=== PATIENT | male | born 1960 | race Caucasian/White ===

== ENCOUNTER 2019-08-08 07:21 | Outpatient (CLI) | payer OTHER ==
--- NOTE | 2019-08-08 08:50 | CT ---
CT ABDOMEN AND PELVIS WITH IV CONTRAST: DATE: 08/08/2019. PROVIDED CLINICAL HISTORY: Palpable liver, anemia, flu-like symptoms. FINDINGS: Comparison is made with the study dated 02/05/2010. The visualized lung bases are free of significant opacity. There are 2 large hypodense masses involving the liver. The largest measures about 17.5 cm in transv erse dimension and spans the right and left hepatic lobes. The second hypodense mass measures about 10 cm in craniocaudal dimension and involves the posterior segment of the right hepatic lobe. These masses demonstrate fluid density centrally and demonstrate a rind of intermediate density with respec t to the normal adjacent liver and are compatible with hepatic abscesses. The liver appears enlarged , measuring about 24 cm in craniocaudal dimension. The spleen, pancreas, kidneys, and adrenal glands demonstrate an unremarkable CT appearance. There is no bowel dilatation or inflammatory fat stranding. There is trace free fluid present within the pelvic cul-de-sac. Colonic diverticulosis is demonstrated. There are prominent by number not pa thologically enlarged retrocrural lymph nodes, nonspecific. There is a single mildly enlarged lymph node within the region of the jose hepatis, that could be reactive in nature. Vascular calcifications are seen. There is a small amount of fluid within the right inguinal canal pr esumably on the basis of a patent process of vaginalis. The osseous structures demonstrate no concerning lytic or blastic lesions. IMPRESSION: 1. Large cystic masses involving the liver, most compatible with liver abscesses. 2. Trace free pelvic fluid. 3. Hepatomegaly. 4. These findings were communicated to Dr. Squires via telephone at _[id number]_ 08/08/2019. CODE CR POS: OFF
[2019-08-08] MEDS ORDERED: Iopamidol-370 76% 500 ML 1 ML ONE (15:17)
== END 2019-08-08 07:22 | disposition home or self-care (01) ==
LOC: BICCT 07:21
PROVIDERS: ATTEND Internal Medicine Hematology & Oncology
DX: R16.0 Hepatomegaly, not elsewhere classified (principal); D72.828 Other elevated white blood cell count; D63.8 Anemia in other chronic diseases classified elsewhere; K76.89 Other specified diseases of liver
CPT/HCPCS: 74177; Q9967

== ENCOUNTER 2019-08-08 09:25 | Inpatient (IN) | payer OTHER ==
[2019-08-08] MEDS ORDERED: Lorazepam 2 MG/ML VIAL ONE (09:48)
[2019-08-08 10:30] LABS: Hemoglobin 7.4 g/dL (14.0-18.0); Mean Corpuscular HGB CONC 32.2 g/dL (32.0-36.0); Mean Corpuscular Hemoglobin 26.9 pg (27.0-31.0); Mean Corpuscular Volume 83.4 fL (78.0-98.0); Mean Platelet Volume 5.5 fL (7.4-10.4); Platelet Count 610 thou/uL (130-400); RBC Distribution Width 14.5 % (11.5-14.5); Red Blood Cell (RBC) Count 2.74 mill/uL (4.70-6.10); White Blood Cell (WBC) Count 27.1 thou/uL (4.8-10.8)
[2019-08-08 10:53] LABS: ALT (SGPT) 79 U/L (8-55); AST (SGOT) 92 U/L (5-34); Alkaline Phosphatase 275 U/L (40-110); Anion Gap 13 mmol/L (10-20); BUN (Urea Nitrogen) 19 mg/dL (8.4-25.7); Bilirubin, Total 0.7 mg/dL (0.2-1.2); Calc. Creatinine Clearance 0 mL/min (70-130); Calcium 8.6 mg/dL (7.8-10.44); Carbon Dioxide 27 mmol/L (22-29); Chloride 86 mmol/L (98-107); Estimated GFR-MDRD 90; Globulin 3.4 g/dL (2.4-3.5); Glucose 118 mg/dL (70-105); Lipase 10 U/L (8-78); Potassium 3.7 mmol/L (3.5-5.1); Protein, Total 6.4 g/dL (6.0-8.3); Sodium 122 mmol/L (136-145)
[2019-08-08 11:02] LABS: Band 9 % (5-11); Hypochromia SLIGHT = 6-15 cells (100X) (0-5/hpf); Lymphocytes 10 % (21-51); MDiff Complete? YES; Monocytes 2 % (0-10); Neutrophil 78 % (42-75); Platelet Morphology Comment Appears Increased; Polychromasia SLIGHT = 2-3 cells (100X) (0-2/hpf); Reactive Lymphocytes 1 % (0-10)
[2019-08-08] MEDS ORDERED: Acetaminophen 500 MG TAB ONE (11:02)
[2019-08-08] MEDS ORDERED: Meropenem 2 GM, Admixture Fee 1 EACH in Sodium Chloride 0.9% 100 ML IVPB SCH (11:15)
--- NOTE | 2019-08-08 11:46 | CT ---
NONCONTRAST HEAD CT: HISTORY: Headache. Liver abscess. COMPARISON: 02/05/2010. FINDINGS: No parenchymal hemorrhage. No extraaxial hematoma. No midline shift. Basilar cisterns are patent. Brain volume is age appropriate. Cortical benson-white matter differentiation is preserved. No hydrocephalus. Adequate aeration of the sinuses and mastoid air cells. Calvarium is intact. IMPRESSION: No acute intracranial process. POS: CET
[2019-08-08 12:10] LABS: INR-International Normal Ratio 1.3
[2019-08-08] MEDS ORDERED: Heparin 1,000 UNITS/ML VIAL ONE (12:11)
[2019-08-08] MEDS ORDERED: Ondansetron PF 4 MG/2 ML Vial IVP PRN (12:31)
[2019-08-08] MEDS ORDERED: Acetaminophen 325 MG TAB PO PRN (12:31)
[2019-08-08] MEDS ORDERED: Guaifenesin DM 100-10/5 ML UDCUP PO PRN (12:31)
[2019-08-08] MEDS ORDERED: Bisacodyl 10 MG SUPP PR PRN (12:31)
--- NOTE | 2019-08-08 13:46 | CT ---
CT chest noncontrast HISTORY: Liver abscess. Evaluate for pneumonia. FINDINGS: Lungs are well-inflated. Minimal peripheral scarring. No pleural fluid or lobar consolidati on. Lack of contrast limits evaluation of the soft tissues. There is calcification in the arterial struct ures. Old bilateral rib fractures. Nonenlarged, nonspecific lymph nodes are scattered about the mediastinum. Hypodense masses throughout the liver are partially visualized and better detailed on recent CT abdom en exam. IMPRESSION: No acute inflammatory abnormalities of the chest are demonstrated. Atherosclerosis.
[2019-08-08] MEDS ORDERED: Midazolam HCl 2 mg/2 ml Vial ONE (13:56)
[2019-08-08] MEDS ORDERED: Sodium Bicarbonate 2.5 MEQ/5 ML VIAL ONE (13:56)
[2019-08-08] MEDS ORDERED: Fentanyl 100 MCG/2 ML VIAL ONE (13:57)
[2019-08-08 14:00] LABS: Iron 12 ug/dL (65-175); Iron Binding Capacity, Total 149 mcg/dL (261-462)
[2019-08-08 15:31] LABS: Ferritin 3005.01 ng/mL (22-322)
--- NOTE | 2019-08-08 15:59 | HP ---
REASON FOR ADMISSION: Large liver abscess x2, sepsis. HISTORY OF PRESENTING ILLNESS: The patient gives history of having chills, fever, headache, weakness from last 3 months off and on. He in fact had gone to [facility] and the patient had gone to see GRACIELA Rico, at the [facility] and was given a full course of ciprofloxacin. The second time he went with similar complaints , he was given a steroid tapering dose. The patient in fact thought he had flu-like symptoms. The second time when he went, he had blood work done and was referred for to [facility] here. He had come to the Cancer Clinic last Sunday here and had given blood work. He has not heard anything from them yet. As his symptoms continued and the patient got so weak to the point that he could not bear it anymore, came to emergency room here. He has not had any travel outside the country. The patient has been to residential for a duration of 4 months 10 years back. He has not been to shelters. His fever rises up in the evening and lasts up to midnight. He has lost nearly 35 pounds in the last 3 months now. He has some vague discomfort in the right upper quadrant and right lower chest area. No nausea or vomiting. No history of diarrhea including bloody stools or mucoid stools. PAST MEDICAL AND SURGICAL HISTORY: Hypertension, prior history of small bowel obstruction, which was medically treated, left wrist surgery, chronic back pain. CURRENT MEDICATIONS: The patient takes; 1. Meloxicam 15 mg p.r.n. 2. Flexeril 10 mg three times daily p.r.n. 3. Multivitamin one tablet once daily. 4. Lasix 20 mg daily. 5. Ultram 50 mg twice daily p.r.n. 6. Lisinopril with hydrochlorothiazide 20/25 mg p.o. daily. 7. Potassium chloride daily. ALLERGIES: NO KNOWN DRUG ALLERGIES. PERSONAL HISTORY: Smokes cigars on a daily basis. States he smokes weed. Drinks anywhere from 8 to 10 beers daily. Does not abuse other drugs. Lives with his with whom he is for 8 years now. FAMILY HISTORY: Both parents are living. They are in their late 70s. Both have had history of skin cancers. REVIEW OF SYSTEMS: CONSTITUTIONAL: Negative for weight loss or gain, ability to conduct usual activities. SKIN: Negative for rash, itching. EYES: Negative for double vision, pain. ENT/MOUTH: Negative for nose bleeding, neck stiffness, pain, tenderness. CARDIOVASCULAR: Negative for palpitations, dyspnea on exertion, orthopnea. RESPIRATORY: Negative for shortness of breath, wheezing, cough, hemoptysis, fever or night sweats. GASTROINTESTINAL: Negative for poor appetite, abdominal pain, heartburn, nausea , vomiting, constipation, or diarrhea. GENITOURINARY: Negative for urgency, frequency, dysuria, nocturia. MUSCULOSKELETAL: Negative for pain, swelling. NEUROLOGIC/PSYCHIATRIC: Negative for anxiety, depression. ALLERGY/IMMUNOLOGIC: Negative for skin rash, bleeding tendency. CODE STATUS: Full. Power of insurance attorney is his . PHYSICAL EXAMINATION: GENERAL: The patient is a 59-year-old male who is currently not in any acute distress. VITAL SIGNS: Blood pressure 118/62, pulse 115 per minute, respiratory rate 20 per minute, temperature 100.8 degrees Fahrenheit, saturating 99% on room air. NECK: Supple. No elevated JVD. HEENT: Eyes; extraocular muscles intact. Pupils reacting to light. Oral cavity, mucous membranes are dry. No exudates or congestion. CARDIOVASCULAR: S1 and S2 heard. Regular rhythm. RESPIRATORY: Air entry 1+ bilateral. Scattered rhonchi plus. No rales or wheezes. ABDOMEN: Soft. Mild tenderness in the right upper quadrant. Hepatomegaly is felt and the liver margins are tender. No splenomegaly. No rigidity or guarding. EXTREMITIES: No peripheral edema or calf tenderness. VASCULAR: Peripheral pulses 1+ bilateral. No ischemic ulcerations or gangrene. CENTRAL NERVOUS SYSTEM: No gross focal deficits noted. The patient is alert, awake, and oriented well. PSYCHIATRIC: The patient's mood is euthymic. No hallucinations or delusions. LABORATORY DATA: CT chest without contrast done showed no acute inflammatory abnormality. CT brain without contrast done showed no acute intracranial abnormality. CT of the abdomen and pelvis showed large cystic masses involving liver, most compatible with liver abscesses. Trace free pelvic fluid is seen. Hepatomegaly is seen. White count of 27, H and H of 7.4 and 22, MCV is 83, platelet count 610 with 78% neutrophils and 9% bands. Retic count is 2.0. PT, INR, PTT are 16, 1.3, and 36. Sodium 122, serum bicarb 27, BUN 19, creatinine 0.8, glucose 118. Lactic acid 1.1. Serum iron 12, TIBC 149, percent saturation 8. AST 92, ALT 79 , alkaline phosphatase 275, albumin 3.0. Ferritin is 1863. CLINICAL IMPRESSION AND PLAN: The patient will be admitted to [facility] for suspected large liver abscesses x2. Interventional Radiology has been consulted for drainage of the same. We will await cultures from the same. We will also obtain QuantiFERON tests, blood cultures, urine cultures, and Entamoeba histolytica antigen and antibody levels. He will be on meropenem and vancomycin. We will consult Dr. Mahoney for Infectious Disease. The patient will be on normal saline at 100 mL per hour. He will be on banana bag in view of heavy history of alcohol abuse. We will continue to closely monitor him in [facility]. He can be safely downgraded early in the morning once he is stable. Job ID: [id number] MTDD
--- NOTE | 2019-08-08 16:09 | CT ---
CT Liver Abscess Drainage History: Liver abscess as Comparison: CT examination same day Findings: Patient was brought to the CT suite. Questions were answered. Informed consent was obtained. Timeout performed. The patient's abdomen was prepped and draped in normal sterile fashion. After adequate local anesthes ia using CT guidance, an 8 [place] drainage catheter was placed into the left hepatic lobe anterior abscess. Loculations were broken up with Amplatz wire. An 8 [place] catheter was placed within the abs cess. Next there is attention to the right posterior hepatic abscess. Again the right posterior flank was p repped and draped in normal sterile fashion. After adequate local anesthesia under CT guidance an 8 [place] catheter was placed into the abscess after breaking up the loculations with an Amplatz wire. Impression: Technically successful CT-guided liver abscess drainage x2.
[2019-08-08 16:48] VITALS: BMI 28.3
[2019-08-08] MEDS: Sodium Chloride 0.9% 1,000 ML IV SCH ×2 (16:57→21:06)
[2019-08-08] MEDS: Multivitamins, Adult 10 ML, Folic Acid 1 MG, Thiamine HCl 100 MG in Dextrose 5 %-0.45 %... IV SCH (16:58)
[2019-08-08] MEDS: Morphine 2 MG/ML SYRINGE SLOW IVP PRN (17:08)
[2019-08-08] MEDS: MEROPENEM 1 GM/50 ML 1 GM in Premix Bag 1 BAG IVPB SCH (20:46)
[2019-08-08] MEDS ORDERED: Vancomycin HCl 1 GM in Premix Bag 1 BAG IVPB SCH (21:00)
[2019-08-08] MEDS: Vancomycin HCl 1.75 GM in Sodium Chloride 0.9% 500 ML IVPB SCH (21:02)
[2019-08-08] MEDS: Famotidine 20 MG TAB PO SCH (21:02)
[2019-08-08] MEDS: Senokot S 8.6-50 MG TAB PO PRN (21:06)
[2019-08-09] MEDS: Morphine 2 MG/ML SYRINGE SLOW IVP PRN ×4 (03:18→21:23)
[2019-08-09 03:56] LABS: ALT (SGPT) 68 U/L (8-55); AST (SGOT) 64 U/L (5-34); Albumin 2.6 g/dL (3.5-5.0); Alkaline Phosphatase 250 U/L (40-110); Anion Gap 14 mmol/L (10-20); BUN (Urea Nitrogen) 16 mg/dL (8.4-25.7); Bilirubin, Total 0.9 mg/dL (0.2-1.2); Calc. Creatinine Clearance 140 mL/min (70-130); Calcium 8.1 mg/dL (7.8-10.44); Carbon Dioxide 24 mmol/L (22-29); Chloride 92 mmol/L (98-107); Estimated GFR-MDRD Greater than 90; Globulin 3.2 g/dL (2.4-3.5); Glucose 101 mg/dL (70-105); Potassium 3.9 mmol/L (3.5-5.1); Protein, Total 5.8 g/dL (6.0-8.3); Sodium 126 mmol/L (136-145)
[2019-08-09 04:40] LABS: Band 5 % (5-11); Elliptocytes SLIGHT = 2-5 cells (100X) (0-1/hpf); Hemoglobin 8.7 g/dL (14.0-18.0); Hypochromia SLIGHT = 6-15 cells (100X) (0-5/hpf); Lymphocytes 15 % (21-51); MDiff Complete? YES; Mean Corpuscular HGB CONC 31.9 g/dL (32.0-36.0); Mean Corpuscular Hemoglobin 27.3 pg (27.0-31.0); Mean Corpuscular Volume 85.4 fL (78.0-98.0); Mean Platelet Volume 5.5 fL (7.4-10.4); Metamyelocyte 1 % (0-0); Monocytes 3 % (0-10); Neutrophil 76 % (42-75); Platelet Count 586 thou/uL (130-400); Platelet Morphology Comment Appears Increased; RBC Distribution Width 14.7 % (11.5-14.5); Red Blood Cell (RBC) Count 3.18 mill/uL (4.70-6.10); White Blood Cell (WBC) Count 21.5 thou/uL (4.8-10.8)
[2019-08-09] MEDS: MEROPENEM 1 GM/50 ML 1 GM in Premix Bag 1 BAG IVPB SCH ×3 (04:40→20:05)
[2019-08-09] MEDS: Vancomycin HCl 1.75 GM in Sodium Chloride 0.9% 500 ML IVPB SCH ×2 (09:02→21:48)
[2019-08-09] MEDS: Sodium Chloride 0.9% 1,000 ML IV SCH ×2 (09:02→19:23)
[2019-08-09] MEDS: Famotidine 20 MG TAB PO SCH ×2 (09:03→19:22)
[2019-08-09] MEDS: HYDROcodone/Acetaminophen 5/325 mg Tablet PO PRN ×3 (09:03→19:21)
[2019-08-09] MEDS: Enoxaparin Sodium 40 MG/0.4 ML SYRINGE SC SCH (09:13)
--- NOTE | 2019-08-09 10:43 | PDOC.HOSPP ---
- Subjective Encounter Date: 08/09/19 Encounter Time: 10:41 Subjective: Mr. Hammer was seen today in follow-up of liver abscess. He notes some abdominal pain, but says it is tolerable with pain medication. - Objective Vital Signs & Weight: Vital Signs (12 hours) Temp Pulse Ox 08/09/19 07:52 97 08/09/19 07:15 98.2 F 08/09/19 03:47 98.9 F 08/08/19 23:42 97.2 F L Weight Weight 197 lb 8 oz I&O: 08/08/19 08/09/19 08/10/19 06:59 06:59 06:59 Intake Total 1450 Output Total 1645 Balance -195 Result Diagrams: 08/09/19 03:21 08/09/19 03:21 Hospitalist ROS - Medication Medications: Active Medications Generic Name Dose Route Start Last Admin Trade Name Freq PRN Reason Stop Dose Admin Acetaminophen 650 mg 08/08/19 12:31 08/08/19 19:35 Tylenol PO 650 mg Q4H PRN Administration Headache/Fever/Mild Pain (1-3) Hydrocodone Bitart/Acetaminophen 1 tab 08/08/19 12:31 08/09/19 09:03 [place] 5/325 PO 1 tab Q4H PRN Administration Moderate Pain (4-6) Enoxaparin Sodium 40 mg 08/09/19 09:00 08/09/19 09:13 Lovenox SC 40 mg 0900 RHONDA Administration Famotidine 20 mg 08/08/19 21:00 08/09/19 09:03 Pepcid PO 20 mg BID RHONDA Administration Multivitamins 10 ml/ Folic 1,011.2 mls @ 60 mls/hr 08/08/19 13:00 08/08/19 16 :58 Acid 1 mg/ Thiamine HCl 100 mg IV 08/10/19 05:52 Not Given / Dextrose/Sodium Chloride Q24HR RHONDA Meropenem 1 gm/ Device 50 mls @ 100 mls/hr 08/08/19 20:00 08/09/19 04:40 IVPB 50 mls 0400,1200,2000 RHONDA Administration Sodium Chloride 1,000 mls @ 100 mls/hr 08/08/19 12:31 08/09/19 09:02 Normal Saline 0.9% IV 1,000 mls .Q10H RHONDA Administration Vancomycin HCl 1.75 gm/ Sodium 500 mls @ 250 mls/hr 08/08/19 21:00 08/09/19 09:02 Chloride IVPB 500 mls Q12HR RHONDA Administration Morphine Sulfate 2 mg 08/08/19 12:31 08/09/19 09:02 Morphine SLOW IVP 2 mg Q4H PRN Administration Pain Senna/Docusate Sodium 2 tab 08/08/19 12:31 08/08/19 21:06 Senokot S PO 2 tab BIDPRN PRN Administration Constipation - Exam Eye: PERRL Heart: RRR, no rubs, normal peripheral pulses, II/IV Respiratory: CTAB, no wheezes, no rales, no ronchi, normal chest expansion, no tachypnea, normal percussion Gastrointestinal: soft, non-distended, normal bowel sounds, no palpable masses, no hepatomegaly, no splenomegaly, tender to palpation (+ mild abdomnial tenderness no rebound or guarding) Extremities: no cyanosis, no clubbing, no edema Skin: normal turgor, no rashes Hosp A/P (1) Liver abscess Code(s): K75.0 - ABSCESS OF LIVER Status: Acute (2) Hypertension Code(s): I10 - ESSENTIAL (PRIMARY) HYPERTENSION Status: Acute (3) Anemia, chronic disease Code(s): D63.8 - ANEMIA IN OTHER CHRONIC DISEASES CLASSIFIED ELSEWHERE Status : Acute - Plan * Liver Abscess- ? etiology- he is s/p percutaneous drainage * Continue Meropenem and Vancomycin IV * Await culture results * Await ID input * HTN-blood pressure is stable * Symptom management
[2019-08-09] MEDS ORDERED: Lorazepam 2 MG/ML VIAL SLOW IVP PRN (10:47)
[2019-08-09] MEDS ORDERED: Lorazepam 1 MG TAB PO PRN (10:47)
[2019-08-09] MEDS: Multivitamins, Adult 10 ML, Folic Acid 1 MG, Thiamine HCl 100 MG in Dextrose 5 %-0.45 %... IV SCH (12:24)
--- NOTE | 2019-08-09 12:54 | CON ---
DATE OF CONSULTATION: HISTORY OF PRESENT ILLNESS: Kameron Hammer is a 59-year-old gentleman whose family states, for 3 months, he has had febrile illness, cough, and cold about several weeks ago. He started developing abdominal pain where workup revealed he had multiple liver abscesses and he underwent drainage yesterday. His family states he has a heavy history of alcohol intake. He is an alcoholic, drinks up to 12 beers a day. 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 Does not miss the work. PAST MEDICAL HISTORY: Pertinent for hypertension. PAST SURGICAL HISTORY: Previous surgeries: Left wrist surgery. SOCIAL HISTORY: Tobacco, minimal; cigars, marijuana. Alcohol as noted. HOME MEDICATIONS: Unknown. He sees a doctor [[id number]]. REVIEW OF SYSTEMS: Otherwise, 10-point negative. PHYSICAL EXAMINATION: GENERAL: Foul smelling odor in the room. VITAL SIGNS: Temperature 97, sats 97% on room air, blood pressure 120/80, respiratory rate 18. CHEST: No wheezing or crackles. CARDIAC: Normal S1, S2. No gallops. ABDOMEN: No masses. LABORATORY DATA: White count 21,000; and platelet count is elevated. His liver function shows an AST of 64. IMPRESSION: 1. Anaerobic liver abscess. 2. Alcohol abuse. PLAN: 1. Anaerobic coverage for his liver abscesses and meropenem. This should be more than adequate. Also on vancomycin. Await cultures. 2. Pulmonary/Critical Care will follow while in the MICU. Consultation note, 70 minutes, 50% direct patient care. Job ID: [id number]
--- NOTE | 2019-08-09 16:09 | CON ---
DATE OF CONSULTATION: 08/09/2019 REASON FOR CONSULTATION: Liver abscess. HISTORY OF PRESENT ILLNESS: A 59-year-old gentleman with history of alcoholism with 3 months' history of progressively worsening right upper quadrant pain. The patient was seen 2 or 3 times in the outpatient clinic at [facility] in [place], and was given antimicrobial therapy for a few days with immediate improvement, but then recrudescence of the symptoms, eventually had to be admitted, and has had percutaneous CT-guided drainage. Two different drains have been placed with purulent anaerobic-smelling exudate. He has 2 pigtail catheters inserted and he otherwise denies headaches. No visual symptoms, sore throat, odynophagia, or dysphagia. No dental pain. Back pain at the site of the 2nd percutaneous drain. No dyspnea or cough. He has some delay in voiding, which is new. No joint symptoms or skin disorder. No neurological symptoms. PAST MEDICAL HISTORY: 1. Alcoholism. 2. Hypertension. PAST SURGICAL HISTORY: Left wrist repair. 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 Lives in [place] with . Drinks more than 10 drinks per day. Current smoker, mostly cigars. ALLERGIES: NONE. MEDICATIONS: Had been on: 1. Meloxicam. 2. Lisinopril. 3. Cyclobenzaprine. 4. Furosemide. 5. Tramadol. 6. Potassium. 7. Multivitamins. Now, he is also on meropenem and vancomycin. FAMILY HISTORY: Noncontributory. PHYSICAL EXAMINATION: VITAL SIGNS: T-max 101.4, blood pressure 130/70, pulse 82, respirations 18. SKIN : Two percutaneous drains, one in the right upper quadrant and the other in the right subcostal region right side posteriorly. No Eduardo catheter. Voiding spontaneously. No lymphadenopathy. HEENT: Alopecia. Ocular movements normal. Pupils are equal. Conjunctivae normal. Oral cavity with still quite a few teeth in place with moderate decay. NECK: Supple. No jugular vein distention or carotid bruits. LUNGS: Symmetric breath sounds. HEART: S1 and S2. Regular rate. No S3 or S4. ABDOMEN: Soft, not distended. No ascites. No bladder distention. Tender right upper quadrant. Liver edge percussed about 2 cm below the right costal margin. No evidence of splenomegaly. EXTREMITIES: No joint inflammatory activity. Pulses 1+ in dorsalis pedis. NEUROLOGIC: Nonfocal including cognitive function. Speech is normal. Recall is normal. Follows commands, pleasant. DIAGNOSTIC STUDIES: LABORATORY RESULTS: Initial lab results: Sodium 122, creatinine 0.87, glucose 118. Iron 12 and TIBC 149. Bilirubin 0.7, AST 92, ALT 79, alkaline phosphatase 275, and albumin 3.0. Initial white cell count 27,000 and now 21,000, hemoglobin 7.4 and 8.7, platelets are 586 now, differentials with a predominance of mature neutrophils. Two sets of blood cultures pending. The aspirates from the liver with pending cultures. Gram stain with no organisms seen. IMAGING STUDIES: An abdomen and pelvis CT from yesterday with a large cystic mass in the liver, trace pelvic fluid, hepatomegaly. ASSESSMENT: 1. Alcoholism. 2. Likely pyogenic liver abscess. DISCUSSION: The clinical findings and the odor or typical anaerobic liver abscess, probably from bowel origin, could be from oral cavity as well; for example, Fusobacterium or Prevotella liver abscess from extension from the parapharyngeal space to the venous plexus. Biliary tract process not obvious. Continue meropenem and monitor culture results, so will need a PICC line insertion and IV antimicrobial therapy for protracted period of time probably around 6 weeks. May be able to treat with oral medication depending on the nature of the organism, but most likely will need a PICC line. The disposition will depend on case management and his insurance. Job ID: [id number] MTDD
[2019-08-10] MEDS: Morphine 2 MG/ML SYRINGE SLOW IVP PRN ×3 (01:28→19:08)
[2019-08-10] MEDS: Sodium Chloride 0.9% 1,000 ML IV SCH ×2 (04:25→11:57)
[2019-08-10] MEDS: MEROPENEM 1 GM/50 ML 1 GM in Premix Bag 1 BAG IVPB SCH ×3 (04:25→19:08)
[2019-08-10] MEDS: Senokot S 8.6-50 MG TAB PO PRN ×2 (04:45→19:14)
[2019-08-10 05:20] LABS: #Basophils 0.2 thou/uL (0.0-0.2); #Eosinphils 0.1 thou/uL (0.0-0.7); #Lymphocytes 3.7 thou/uL (1.20-3.40); #Monocytes 0.8 thou/uL (0.11-0.59); #Neutrophils 13.2 thou/uL (1.40-6.50); %Basophils 0.9 % (0.0-1.0); %Eosinophils 0.3 % (0.0-10.0); %Lymphocytes 20.8 % (21.0-51.0); %Monocytes 4.4 % (0.0-10.0); %Neutrophils 73.6 % (42.0-75.0); Hemoglobin 8.4 g/dL (14.0-18.0); Mean Corpuscular HGB CONC 31.7 g/dL (32.0-36.0); Mean Corpuscular Hemoglobin 27.2 pg (27.0-31.0); Mean Corpuscular Volume 85.6 fL (78.0-98.0); Mean Platelet Volume 5.6 fL (7.4-10.4); Platelet Count 604 thou/uL (130-400); RBC Distribution Width 14.8 % (11.5-14.5); Red Blood Cell (RBC) Count 3.11 mill/uL (4.70-6.10); White Blood Cell (WBC) Count 17.9 thou/uL (4.8-10.8)
[2019-08-10 05:45] LABS: Anion Gap 12 mmol/L (10-20); BUN (Urea Nitrogen) 12 mg/dL (8.4-25.7); Calc. Creatinine Clearance 172 mL/min (70-130); Calcium 7.8 mg/dL (7.8-10.44); Carbon Dioxide 23 mmol/L (22-29); Chloride 95 mmol/L (98-107); Estimated GFR-MDRD Greater than 90; Glucose 111 mg/dL (70-105); Potassium 3.6 mmol/L (3.5-5.1); Sodium 126 mmol/L (136-145)
[2019-08-10] MEDS: Enoxaparin Sodium 40 MG/0.4 ML SYRINGE SC SCH (08:39)
[2019-08-10] MEDS: HYDROcodone/Acetaminophen 5/325 mg Tablet PO PRN (08:39)
[2019-08-10 08:40] LABS: Vancomycin, Trough 17.3 ug/mL
[2019-08-10] MEDS: Thiamine 100 MG TAB PO SCH (08:40)
[2019-08-10] MEDS: Famotidine 20 MG TAB PO SCH ×2 (08:40→19:08)
[2019-08-10] MEDS: Folic Acid 1 MG TAB PO SCH (08:40)
[2019-08-10] MEDS: Vancomycin HCl 1.75 GM in Sodium Chloride 0.9% 500 ML IVPB SCH ×2 (09:58→19:49)
--- NOTE | 2019-08-10 10:11 | PRG ---
DATE OF SERVICE: 08/10/2019 SUBJECTIVE: Kameron Pelayo this morning is doing better. Less pain, less shortness of breath. OBJECTIVE: VITAL SIGNS: Temperature 98, pulse 91, respirations 18, saturations , blood pressure 135/78. CHEST: No wheezing or crackles. CARDIAC: Normal S1 and S2. No gallops. ABDOMEN: No mass. LABORATORY DATA: Sodium 126. White count cultures so far negative. IMPRESSION AND PLAN: Liver abscess, multiple; alcohol abuse. Continue antibiotics as per Infectious Disease. Pulmonary will follow at a distance. Call if needed. Job ID: [id number]
--- NOTE | 2019-08-10 14:09 | PDOC.HOSPP ---
- Subjective Encounter Date: 08/10/19 Encounter Time: 14:08 Subjective: Mr. Hammer was seen today in follow-up of liver abscess. He continues to have significant pain in the RUQ. No new complaints. His overall appearance is better. - Objective Vital Signs & Weight: Vital Signs (12 hours) Temp Pulse Resp BP Pulse Ox 08/10/19 08:00 96 08/10/19 07:53 98.9 F 91 18 135/78 97 08/10/19 04:43 97.4 F L 96 20 151/80 H 96 Weight Admit Weight 197 lb 8 oz Weight 197 lb 8 oz I&O: 08/09/19 08/10/19 08/11/19 06:59 06:59 06:59 Intake Total 1450 Output Total 1645 170 105 Balance -195 -170 -105 Result Diagrams: 08/10/19 04:46 08/10/19 04:46 Hospitalist ROS - Medication Medications: Active Medications Generic Name Dose Route Start Last Admin Trade Name Freq PRN Reason Stop Dose Admin Acetaminophen 650 mg 08/08/19 12:31 08/08/19 19:35 Tylenol PO 650 mg Q4H PRN Administration Headache/Fever/Mild Pain (1-3) Hydrocodone Bitart/Acetaminophen 1 tab 08/08/19 12:31 08/10/19 08:39 [place] 5/325 PO 1 tab Q4H PRN Administration Moderate Pain (4-6) Enoxaparin Sodium 40 mg 08/09/19 09:00 08/10/19 08:39 Lovenox SC 40 mg 0900 RHONDA Administration Famotidine 20 mg 08/08/19 21:00 08/10/19 08:40 Pepcid PO 20 mg BID RHONDA Administration Folic Acid 1 mg 08/10/19 09:00 08/10/19 08:40 Folvite PO 1 mg DAILY RHONDA Administration Meropenem 1 gm/ Device 50 mls @ 100 mls/hr 08/08/19 20:00 08/10/19 11:56 IVPB 50 mls 0400,1200,2000 RHONDA Administration Vancomycin HCl 1.75 gm/ Sodium 500 mls @ 250 mls/hr 08/08/19 21:00 08/10/19 09:58 Chloride IVPB 500 mls Q12HR RHONDA Administration Morphine Sulfate 2 mg 08/08/19 12:31 08/10/19 12:36 Morphine SLOW IVP 2 mg Q4H PRN Administration Pain Senna/Docusate Sodium 2 tab 08/08/19 12:31 08/10/19 04:45 Senokot S PO 2 tab BIDPRN PRN Administration Constipation Thiamine HCl 100 mg 08/10/19 09:00 08/10/19 08:40 Thiamine PO 100 mg DAILY RHONDA Administration - Exam Eye: PERRL Heart: RRR, no murmur, no gallops, no rubs, normal peripheral pulses Respiratory: CTAB, no wheezes, no rales, no ronchi, normal chest expansion Gastrointestinal: soft, normal bowel sounds, tender to palpation, distended Extremities: no cyanosis, no clubbing, no edema Hosp A/P (1) Liver abscess Code(s): K75.0 - ABSCESS OF LIVER Status: Acute (2) Hypertension Code(s): I10 - ESSENTIAL (PRIMARY) HYPERTENSION Status: Acute (3) Anemia, chronic disease Code(s): D63.8 - ANEMIA IN OTHER CHRONIC DISEASES CLASSIFIED ELSEWHERE Status : Acute - Plan * Liver Abscess- ? etiology- he is s/p percutaneous drainage * Continue Meropenem and Vancomycin IV * Will add Incentive Spirometry * Hyponatemia-consistent with SIADH- will fluid restrict, and discontinue the IV fluids * HTN- blood pressure is stable
[2019-08-11] MEDS: Morphine 2 MG/ML SYRINGE SLOW IVP PRN (04:05)
[2019-08-11] MEDS: MEROPENEM 1 GM/50 ML 1 GM in Premix Bag 1 BAG IVPB SCH ×3 (04:05→20:27)
[2019-08-11 05:31] LABS: #Basophils 0.1 thou/uL (0.0-0.2); #Eosinphils 0.1 thou/uL (0.0-0.7); #Monocytes 0.9 thou/uL (0.11-0.59); #Neutrophils 11.7 thou/uL (1.40-6.50); %Basophils 0.9 % (0.0-1.0); %Eosinophils 0.6 % (0.0-10.0); %Lymphocytes 23.8 % (21.0-51.0); %Monocytes 5.2 % (0.0-10.0); %Neutrophils 69.5 % (42.0-75.0); Hemoglobin 7.6 g/dL (14.0-18.0); Mean Corpuscular HGB CONC 27.5 g/dL (32.0-36.0); Mean Corpuscular Hemoglobin 23.3 pg (27.0-31.0); Mean Corpuscular Volume 84.9 fL (78.0-98.0); Mean Platelet Volume 5.4 fL (7.4-10.4); Platelet Count 627 thou/uL (130-400); RBC Distribution Width 14.9 % (11.5-14.5); Red Blood Cell (RBC) Count 3.24 mill/uL (4.70-6.10); White Blood Cell (WBC) Count 16.8 thou/uL (4.8-10.8)
[2019-08-11 05:54] LABS: Anion Gap 11 mmol/L (10-20); BUN (Urea Nitrogen) 10 mg/dL (8.4-25.7); Calc. Creatinine Clearance 181 mL/min (70-130); Calcium 7.8 mg/dL (7.8-10.44); Carbon Dioxide 25 mmol/L (22-29); Chloride 93 mmol/L (98-107); Estimated GFR-MDRD Greater than 90; Glucose 105 mg/dL (70-105); Potassium 3.5 mmol/L (3.5-5.1); Sodium 125 mmol/L (136-145)
[2019-08-11] MEDS: Folic Acid 1 MG TAB PO SCH (07:59)
[2019-08-11] MEDS: Enoxaparin Sodium 40 MG/0.4 ML SYRINGE SC SCH (07:59)
[2019-08-11] MEDS: Thiamine 100 MG TAB PO SCH (07:59)
[2019-08-11] MEDS: Sodium Chloride 1 GM TAB PO SCH ×3 (07:59→16:19)
[2019-08-11] MEDS: Famotidine 20 MG TAB PO SCH ×2 (07:59→20:30)
[2019-08-11] MEDS: HYDROcodone/Acetaminophen 5/325 mg Tablet PO PRN ×2 (08:05→16:25)
[2019-08-11] MEDS: Vancomycin HCl 1.75 GM in Sodium Chloride 0.9% 500 ML IVPB SCH (08:52)
[2019-08-11] MEDS ORDERED: Cyclobenzaprine 10 MG TAB PO PRN (09:35)
[2019-08-11] MEDS ORDERED: traMADol HCl 50 MG TAB PO PRN (09:35)
[2019-08-11] MEDS ORDERED: Polyethylene Glycol 3350 17 GM Packet PO PRN (09:36)
--- NOTE | 2019-08-11 13:38 | PRG ---
DATE OF SERVICE: 08/11/2019 SUBJECTIVE: The patient is transferred to the floor and he is improving every day and pain still there but less intense than before. No respiratory symptoms. Voiding without difficulty. Somewhat loose stools. OBJECTIVE: VITAL SIGNS: T-max 99.7, blood pressure 130/70, pulse 86, respirations 18, O2 saturation 98%. GENERAL: The patient has two drains still with a significant amount of purulent exudate draining, particularly from the anterior drain. Appears in no distress, oriented, alert. LUNGS: Clear to auscultation and percussion. HEART: S1, S2. Regular rate. No S3, S4. ABDOMEN: With evidence of hepatomegaly and moderate tenderness in right upper quadrant. No bladder distention. NEUROLOGIC: Nonfocal. LABORATORY DATA: White cell count is at 16.8, hemoglobin 7.6, platelets 627, and creatinine 0.57. The transaminases are thus decreasing. The microbiology thus far negative liver abscess aspirate cultures. ASSESSMENT AND DISCUSSION: History of alcoholism and pyogenic liver abscess is the more likely scenario. Anaerobic oral or gastrointestinal bacteria are more likely culprits here, fusobacterium, prevotella, microaerophilic, streptococci, Streptococcus anginosus/milleri. Staphylococcus aureus infection is less likely in view of the negative Gram stain. I will go ahead and discontinue vancomycin and maintain meropenem, PICC line placement. It is possible that nothing will be retrieved from the cultures and in that case, we will continue meropenem for a protracted period of time and monitor the results of the amoebic serology. Job ID: [id number]
--- NOTE | 2019-08-11 16:29 | PDOC.HOSPP ---
- Subjective Encounter Date: 08/11/19 Encounter Time: 16:28 Subjective: Mr. Hammer was seen today in follow-up of liver abscesses. He notes some improvement in his pain. - Objective Vital Signs & Weight: Vital Signs (12 hours) Temp Pulse Resp BP BP Pulse Ox 08/11/19 12:24 135/76 08/11/19 11:54 98.6 F 86 18 135/76 98 08/11/19 08:28 99.3 F 89 18 152/83 H 95 08/11/19 08:00 152/83 H 96 Weight Admit Weight 197 lb 8 oz Weight 197 lb 8 oz I&O: 08/10/19 08/11/19 08/12/19 06:59 06:59 06:59 Intake Total 2600 Output Total 170 200 Balance -170 2400 Result Diagrams: 08/11/19 05:07 08/11/19 05:07 Hospitalist ROS - Medication Medications: Active Medications Generic Name Dose Route Start Last Admin Trade Name Freq PRN Reason Stop Dose Admin Acetaminophen 650 mg 08/08/19 12:31 08/08/19 19:35 Tylenol PO 650 mg Q4H PRN Administration Headache/Fever/Mild Pain (1-3) Hydrocodone Bitart/Acetaminophen 1 tab 08/08/19 12:31 08/11/19 16:25 [place] 5/325 PO 1 tab Q4H PRN Administration Moderate Pain (4-6) Enoxaparin Sodium 40 mg 08/09/19 09:00 08/11/19 07:59 Lovenox SC 40 mg 0900 RHONDA Administration Famotidine 20 mg 08/08/19 21:00 08/11/19 07:59 Pepcid PO 20 mg BID RHONDA Administration Folic Acid 1 mg 08/10/19 09:00 08/11/19 07:59 Folvite PO 1 mg DAILY RHONDA Administration Meropenem 1 gm/ Device 50 mls @ 100 mls/hr 08/08/19 20:00 08/11/19 12:50 IVPB 50 mls 0400,1200,2000 RHONDA Administration Morphine Sulfate 2 mg 08/08/19 12:31 08/11/19 04:05 Morphine SLOW IVP 2 mg Q4H PRN Administration Pain Senna/Docusate Sodium 2 tab 08/08/19 12:31 08/10/19 19:14 Senokot S PO 2 tab BIDPRN PRN Administration Constipation Sodium Chloride 1 gm 08/11/19 08:00 08/11/19 16:19 Sodium Chloride PO 1 gm TID-WM RHONDA Administration Thiamine HCl 100 mg 08/10/19 09:00 08/11/19 07:59 Thiamine PO 100 mg DAILY RHONDA Administration - Exam Eye: PERRL Heart: RRR, no murmur, no gallops, no rubs, normal peripheral pulses Respiratory: CTAB, no wheezes, no rales, no ronchi, normal chest expansion, no tachypnea, normal percussion Gastrointestinal: soft, normal bowel sounds, tender to palpation (+ mild RUQ and epigastric tenderness, improved from yesterday), distended Extremities: no cyanosis, no clubbing, no edema Hosp A/P (1) Liver abscess Code(s): K75.0 - ABSCESS OF LIVER Status: Acute (2) Hypertension Code(s): I10 - ESSENTIAL (PRIMARY) HYPERTENSION Status: Acute (3) Anemia, chronic disease Code(s): D63.8 - ANEMIA IN OTHER CHRONIC DISEASES CLASSIFIED ELSEWHERE Status : Acute - Plan * Liver Abscess- Cultures are negative so far * Entaoemeba as well * ID input appreciated- his antibiotics have been tailored down to meropenem * Hyponatemia-consistent with SIADH- continue fluid restriction, and will add salt tabs * HTN- blood pressure is stable * For PICC line placement and begin arrangement for outpatient antibiotics.
[2019-08-12] MEDS: HYDROcodone/Acetaminophen 5/325 mg Tablet PO PRN ×5 (01:03→23:45)
[2019-08-12] MEDS: MEROPENEM 1 GM/50 ML 1 GM in Premix Bag 1 BAG IVPB SCH ×3 (04:53→20:30)
[2019-08-12 06:18] LABS: Anion Gap 10 mmol/L (10-20); BUN (Urea Nitrogen) 10 mg/dL (8.4-25.7); Calc. Creatinine Clearance 167 mL/min (70-130); Calcium 7.9 mg/dL (7.8-10.44); Carbon Dioxide 26 mmol/L (22-29); Chloride 94 mmol/L (98-107); Estimated GFR-MDRD Greater than 90; Glucose 105 mg/dL (70-105); Potassium 3.2 mmol/L (3.5-5.1); Sodium 127 mmol/L (136-145)
[2019-08-12] MEDS: Folic Acid 1 MG TAB PO SCH (08:12)
[2019-08-12] MEDS: Thiamine 100 MG TAB PO SCH (08:12)
[2019-08-12] MEDS: Enoxaparin Sodium 40 MG/0.4 ML SYRINGE SC SCH (08:12)
[2019-08-12] MEDS: Sodium Chloride 1 GM TAB PO SCH ×3 (08:12→17:13)
[2019-08-12] MEDS: Famotidine 20 MG TAB PO SCH ×2 (08:12→20:30)
[2019-08-12] MEDS: Lisinopril/Hydrochlorothiazide 20/25 mg Tablet PO SCH (09:25)
[2019-08-12] MEDS: Metamucil PACK PO SCH (09:26)
--- NOTE | 2019-08-12 11:51 | SPC ---
LEFT UPPER EXTREMITY PICC LINE PLACEMENT WITH ULTRASOUND GUIDANCE: HISTORY: Liver abscess. EXPOSURE: 0.8 minutes, 6501 mGy/cm2. FINDINGS: Successful left upper extremity PICC line placement with ultrasound guidance. Dual lumen 5 [place] cat heter terminates in the right atrium, with a trim length of 44 cm. Catheter flushes and aspirates without difficulty. TECHNIQUE: Consent was obtained to perform a left impression PICC line placement with ultrasound guidance. Left arm was prepped and draped in a sterile fashion. 1% lidocaine, buffered with sodium bicarbonate was used for local anesthesia. Under ultrasound guidance, a micropuncture needle was used to cannulate th e basilic vein. A 0.018 guidewire was advanced through the needle to level of the superior vena cava. Under fluoroscopy, the wire was advanced into the inferior vena cava to document venous access. Wire was subsequently pulled back to the right atrium. Tract was dilated. A single-lumen 5 [place] catheter was advanced over the wire. Distal tip is in the right atrium, with a trim length 44 cm. Cat heter flushes and aspirates without difficulty. IMPRESSION: Successful left upper extremity PICC line placement with ultrasound guidance. Transcribed Date/Time: 08/12/2019 11:55 AM
--- NOTE | 2019-08-12 17:28 | PDOC.HOSPP ---
- Subjective Encounter Date: 08/12/19 Encounter Time: 17:27 Subjective: Mr. Hammer was seen today in follow-up of liver abscess. He does not have any new complaints. He is becoming anxious to go home. - Objective Vital Signs & Weight: Vital Signs (12 hours) Temp Pulse Resp BP BP Pulse Ox 08/12/19 16:44 98.3 F 98 18 156/88 H 95 08/12/19 16:00 156/88 H 08/12/19 12:02 98.4 F 98 20 149/76 H 100 08/12/19 11:58 149/76 H 08/12/19 09:25 96 126/79 08/12/19 08:00 126/79 08/12/19 07:30 100 08/12/19 07:28 98.8 F 96 18 126/79 100 Weight Admit Weight 197 lb 8 oz Weight 197 lb 8 oz I&O: 08/11/19 08/12/19 08/13/19 06:59 06:59 06:59 Intake Total 2600 2050 1350 Output Total 200 160 90 Balance 2400 1890 1260 Result Diagrams: 08/11/19 05:07 08/12/19 05:08 Hospitalist ROS - Medication Medications: Active Medications Generic Name Dose Route Start Last Admin Trade Name Freq PRN Reason Stop Dose Admin Acetaminophen 650 mg 08/08/19 12:31 08/08/19 19:35 Tylenol PO 650 mg Q4H PRN Administration Headache/Fever/Mild Pain (1-3) Hydrocodone Bitart/Acetaminophen 1 tab 08/08/19 12:31 08/12/19 17:17 [place] 5/325 PO 1 tab Q4H PRN Administration Moderate Pain (4-6) Enoxaparin Sodium 40 mg 08/09/19 09:00 08/12/19 08:12 Lovenox SC 40 mg 0900 RHONDA Administration Famotidine 20 mg 08/08/19 21:00 08/12/19 08:12 Pepcid PO 20 mg BID RHONDA Administration Folic Acid 1 mg 08/10/19 09:00 08/12/19 08:12 Folvite PO 1 mg DAILY RHONDA Administration Lisinopril/HCTZ 1 tab 08/12/19 09:00 08/12/19 09:25 Prinizide 20-25 PO 1 tab DAILY RHONDA Administration Meropenem 1 gm/ Device 50 mls @ 100 mls/hr 08/08/19 20:00 08/12/19 12:13 IVPB 50 mls 0400,1200,2000 RHONDA Administration Morphine Sulfate 2 mg 08/08/19 12:31 08/11/19 04:05 Morphine SLOW IVP 2 mg Q4H PRN Administration Pain Psyllium Hydrophilic Mucilloid 1 pk 08/12/19 09:00 08/12/19 09:26 Metamucil PO Not Given DAILY RHONDA Senna/Docusate Sodium 2 tab 08/08/19 12:31 08/10/19 19:14 Senokot S PO 2 tab BIDPRN PRN Administration Constipation Sodium Chloride 1 gm 08/11/19 08:00 08/12/19 17:13 Sodium Chloride PO 1 gm TID-WM RHONDA Administration Thiamine HCl 100 mg 08/10/19 09:00 08/12/19 08:12 Thiamine PO 100 mg DAILY RHONDA Administration - Exam Eye: PERRL Heart: RRR, no murmur, no gallops, no rubs, normal peripheral pulses, diminshed peripheral pulses Respiratory: CTAB, no wheezes, no rales, no ronchi, normal chest expansion, no tachypnea, normal percussion Gastrointestinal: soft, non-tender, non-distended, normal bowel sounds, no palpable masses, no hepatomegaly, no splenomegaly Extremities: no edema Hosp A/P (1) Liver abscess Code(s): K75.0 - ABSCESS OF LIVER Status: Acute (2) Hypertension Code(s): I10 - ESSENTIAL (PRIMARY) HYPERTENSION Status: Acute (3) Anemia, chronic disease Code(s): D63.8 - ANEMIA IN OTHER CHRONIC DISEASES CLASSIFIED ELSEWHERE Status : Acute - Plan * Liver Abscess- Cultures grew Fusobacterium spp. * He will need out patient IV antibiotics arranged, and determine if the drains can be removed * Hyponatremia-slightly improved * HTN- blood pressure is stable * PICC line as been placed
[2019-08-12 20:07] LABS: QuantiFERON-TB Gold Plus Negative (Negative)
[2019-08-13] MEDS: MEROPENEM 1 GM/50 ML 1 GM in Premix Bag 1 BAG IVPB SCH ×3 (04:58→20:24)
[2019-08-13] MEDS: HYDROcodone/Acetaminophen 5/325 mg Tablet PO PRN ×5 (05:06→20:34)
[2019-08-13 05:35] LABS: Anion Gap 12 mmol/L (10-20); BUN (Urea Nitrogen) 12 mg/dL (8.4-25.7); Calc. Creatinine Clearance 164 mL/min (70-130); Calcium 8.5 mg/dL (7.8-10.44); Carbon Dioxide 27 mmol/L (22-29); Chloride 92 mmol/L (98-107); Estimated GFR-MDRD Greater than 90; Glucose 110 mg/dL (70-105); Potassium 3.9 mmol/L (3.5-5.1); Sodium 127 mmol/L (136-145)
[2019-08-13] MEDS: Lisinopril/Hydrochlorothiazide 20/25 mg Tablet PO SCH (08:52)
[2019-08-13] MEDS: Famotidine 20 MG TAB PO SCH ×2 (08:53→20:24)
[2019-08-13] MEDS: Sodium Chloride 1 GM TAB PO SCH ×3 (08:53→16:56)
[2019-08-13] MEDS: Thiamine 100 MG TAB PO SCH (08:53)
[2019-08-13] MEDS: Folic Acid 1 MG TAB PO SCH (08:53)
[2019-08-13] MEDS: Metamucil PACK PO SCH (08:54)
[2019-08-13] MEDS: Enoxaparin Sodium 40 MG/0.4 ML SYRINGE SC SCH (08:54)
[2019-08-13] MEDS: Lisinopril 20 MG TAB PO SCH (09:06)
[2019-08-13] MEDS ORDERED: Furosemide 40 MG/4 ML VIAL SLOW IVP SCH (12:00)
--- NOTE | 2019-08-13 12:29 | CON ---
DATE OF CONSULTATION: CONSULTING PHYSICIAN: Henrietta Edwards MD REQUESTING PHYSICIAN: Jerzy Balbuena MD REASON FOR CONSULTATION: Hyponatremia. IMPRESSION: Hyponatremia. This is likely multifactorial including, but not limited to the followin. Liver disease. 2. Syndrome of inappropriate antidiuretic hormone secretion. 3. Medication in the way of hydrochlorothiazide. PLAN: 1. Discontinue hydrochlorothiazide. 2. Administer IV Lasix. 3. If the above maneuvers do not correct the sodium level appropriate appreciably, we will possibly consider tolvaptan. 4. Increase protein intake in the way of animal meat. 5. Further management to be dependent on the clinical course. HISTORY OF PRESENT ILLNESS: History is that of 59-year-old gentleman, who was brought in with large liver abscess and sepsis, noted with low sodium in the 120 range. As a result of these findings, decision has been taken to involve Renal in the management of this case. The patient claims to be eating okay, but does have bilateral lower extremity edema. Of note, the patient has been on hydrochlorothiazide 25 mg was intact, which has now been discontinued. PAST MEDICAL HISTORY: Significant for hypertension, small bowel obstruction, wrist surgery, and chronic back pain. MEDICATIONS: Reviewed and as documented on [facility]. ALLERGIES: NO KNOWN DRUG ALLERGIES. FAMILY HISTORY: Not significantly related to present illness. REVIEW OF SYSTEMS: As documented in the body of the history. All the other systems were reviewed and found not to be significantly related to presenting illness. PHYSICAL EXAMINATION: GENERAL: The patient was found to be in some respiratory distress. VITAL SIGNS: Noted with the following vital signs; afebrile, temperature 97.9, pulse 97, and respiratory rate of 20 with a blood pressure 116/72. HEENT: Unremarkable. CARDIOVASCULAR SYSTEM: First and second heart sounds were heard. RESPIRATORY SYSTEM: Clear to auscultation. DIGESTIVE SYSTEM: Revealed a benign abdomen. EXTREMITIES: Showed bilateral lower extremity edema. SKIN: No new gross rash. LYMPHATICS: No peripheral lymphadenopathy. SUMMARY: A 59-year-old gentleman, who presented here with liver abscess, now being noted with persistent hyponatremia. Thank you for this consultation. We will follow with you. Job ID: [id number]
--- NOTE | 2019-08-13 16:03 | PDOC.HOSPP ---
- Subjective Encounter Date: 08/13/19 Encounter Time: 16:00 Subjective: Mr. Hammer was seen today in follow-up of liver abscess. He notes increased right sided pain. He relates it to after the PICC line was placed, and having to lay on the table. - Objective Vital Signs & Weight: Vital Signs (12 hours) Temp Pulse Resp BP BP Pulse Ox 08/13/19 12:00 146/79 H 08/13/19 09:06 116/72 08/13/19 08:52 97 116/72 08/13/19 08:00 116/72 100 08/13/19 07:37 97.9 F 97 20 116/72 100 Weight Admit Weight 197 lb 8 oz Weight 197 lb 8 oz I&O: 08/12/19 08/13/19 08/14/19 06:59 06:59 06:59 Intake Total 2050 1350 Output Total 160 105 Balance 1890 1245 Result Diagrams: 08/11/19 05:07 08/13/19 05:06 Hospitalist ROS - Medication Medications: Active Medications Generic Name Dose Route Start Last Admin Trade Name Freq PRN Reason Stop Dose Admin Acetaminophen 650 mg 08/08/19 12:31 08/08/19 19:35 Tylenol PO 650 mg Q4H PRN Administration Headache/Fever/Mild Pain (1-3) Hydrocodone Bitart/Acetaminophen 1 tab 08/08/19 12:31 08/13/19 12:53 [place] 5/325 PO 1 tab Q4H PRN Administration Moderate Pain (4-6) Enoxaparin Sodium 40 mg 08/09/19 09:00 08/13/19 08:54 Lovenox SC 40 mg 0900 RHONDA Administration Famotidine 20 mg 08/08/19 21:00 08/13/19 08:53 Pepcid PO 20 mg BID RHONDA Administration Folic Acid 1 mg 08/10/19 09:00 08/13/19 08:53 Folvite PO 1 mg DAILY RHONDA Administration Meropenem 1 gm/ Device 50 mls @ 100 mls/hr 08/08/19 20:00 08/13/19 11:15 IVPB 50 mls 0400,1200,2000 RHONDA Administration Lisinopril 20 mg 08/13/19 09:00 08/13/19 09:06 Zestril PO Not Given DAILY RHONDA Morphine Sulfate 2 mg 08/08/19 12:31 08/11/19 04:05 Morphine SLOW IVP 2 mg Q4H PRN Administration Pain Psyllium Hydrophilic Mucilloid 1 pk 08/12/19 09:00 08/13/19 08:54 Metamucil PO 1 pk DAILY RHONDA Administration Senna/Docusate Sodium 2 tab 08/08/19 12:31 08/10/19 19:14 Senokot S PO 2 tab BIDPRN PRN Administration Constipation Sodium Chloride 1 gm 08/11/19 08:00 08/13/19 11:14 Sodium Chloride PO 1 gm TID-WM RHONDA Administration Thiamine HCl 100 mg 08/10/19 09:00 08/13/19 08:53 Thiamine PO 100 mg DAILY RHONDA Administration - Exam Eye: PERRL Heart: RRR, no murmur, no gallops, no rubs, normal peripheral pulses Respiratory: CTAB, no wheezes, no rales, no ronchi, normal chest expansion Gastrointestinal: soft, non-tender, non-distended, normal bowel sounds, no palpable masses (+ right flank pain) Extremities: no cyanosis Hosp A/P (1) Liver abscess Code(s): K75.0 - ABSCESS OF LIVER Status: Acute (2) Hypertension Code(s): I10 - ESSENTIAL (PRIMARY) HYPERTENSION Status: Acute (3) Anemia, chronic disease Code(s): D63.8 - ANEMIA IN OTHER CHRONIC DISEASES CLASSIFIED ELSEWHERE Status : Acute - Plan * Liver Abscess- Cultures grew Fusobacterium spp. * Will repeat the CT scan in the AM to assess for adequate drainage of the abscess * If his pain worsens in the right side then will check CT scan tonight ( patient requests to wait until the AM) * Hyponatremia- Nephrology input appreciated- agree with stopping HCTZ, and will re-assess in the AM * HTN- blood pressure is stable
[2019-08-13 18:39] LABS: Sodium 124 mmol/L (136-145)
[2019-08-14] MEDS: HYDROcodone/Acetaminophen 5/325 mg Tablet PO PRN ×3 (00:32→09:21)
[2019-08-14] MEDS: MEROPENEM 1 GM/50 ML 1 GM in Premix Bag 1 BAG IVPB SCH ×3 (04:52→21:15)
--- NOTE | 2019-08-14 07:58 | PRG ---
DATE OF SERVICE: 08/13/2019 SUBJECTIVE: feeling better. Although there is some leakage around the drainage in the back area, the drainage catheter in the back of the CV area. No respiratory symptoms. No diarrhea. No genitourinary symptoms. OBJECTIVE: VITAL SIGNS: He has been afebrile. BP 116/72, pulse 100. GENERAL: Awake, alert, and oriented, in no distress. LUNGS: Clear to auscultation and percussion. HEART: S1 and S2, regular rate. ABDOMEN: Soft and not distended. The area around the flank back catheter, there is a little bit of drainage around the exit orifice and it does not look like the catheters had been flushed that may have obstructed. The patient may have lack of drainage around the tract. LABORATORY DATA: White cell count is down to 16.8, hemoglobin 7.6, platelets 67 with 69% neutrophils. Sodium 127 and creatinine 0.63. The cultures from the abscess aspirate showed a fusobacterium species in 2 samples. ASSESSMENT AND DISCUSSION: Alcoholism by history and pyogenic liver abscess with species Fusobacterium. The patient had an abscess two to three months ago and required extensive dental interventions that may have seeded via the internal jugular vein and the liver. Continue meropenem, could consider switching to oral penicillin or Flagyl, but we will wait to get closer to the end of therapy before making the switch. The patient might have other organisms that we might treat in the culture. We are not yet ready to commit to either Flagyl or penicillin alone. Job ID: [id number] MTDD
[2019-08-14 08:59] LABS: Anion Gap 13 mmol/L (10-20); BUN (Urea Nitrogen) 12 mg/dL (8.4-25.7); Calc. Creatinine Clearance 167 mL/min (70-130); Calcium 8.9 mg/dL (7.8-10.44); Carbon Dioxide 29 mmol/L (22-29); Chloride 90 mmol/L (98-107); Estimated GFR-MDRD Greater than 90; Glucose 102 mg/dL (70-105); Potassium 4.2 mmol/L (3.5-5.1); Sodium 128 mmol/L (136-145)
[2019-08-14 09:04] LABS: Hemoglobin 9.3 g/dL (14.0-18.0); Mean Corpuscular HGB CONC 31.5 g/dL (32.0-36.0); Mean Corpuscular Hemoglobin 27.3 pg (27.0-31.0); Mean Corpuscular Volume 86.4 fL (78.0-98.0); Mean Platelet Volume 5.6 fL (7.4-10.4); Platelet Count 841 thou/uL (130-400); RBC Distribution Width 15.4 % (11.5-14.5); Red Blood Cell (RBC) Count 3.42 mill/uL (4.70-6.10); White Blood Cell (WBC) Count 25.3 thou/uL (4.8-10.8)
--- NOTE | 2019-08-14 09:12 | CT ---
CT OF THE ABDOMEN AND PELVIS WITH IV CONTRAST: INDICATION: History of followup liver abscess drainage. COMPARISON: Prior CT of the abdomen and pelvis dated 08/08/2019. FINDINGS: Previously seen large right hepatic lobe abscess measuring 17.4 x 10 cm on the prior examination has undergone interval percutaneous drain placement. The drain is seen along the anterior aspect of the collection. There is now gas present within the collection consistent with intervention. The collec tion now measures 12.1 x 6.3 cm. The collection within segment 6 of the right hepatic lobe has decre ased in size from 8.6 x 6.8 cm to now 4.6 x 4.8 cm. No new lesions are identified. There is a loculated moderate right pleural effusion which is new. There is persistent bibasilar vol ume loss greater than on the prior exam. The adrenal glands, pancreas, and spleen appear within normal limits. No hydronephrosis is evident. There are moderate calcifications involving the abdominopelvic vasculature. There is a mild amount o f retained stool within the right hemicolon. There is a fluid-containing right inguinal hernia. Shot ty-appearing lymph nodes within the inguinal region appear slightly more pronounced than on the prior exam. Mild anasarca is similar-appearing. Scattered degenerative and osteoarthritic change is pres ent. IMPRESSION: 1. Decreasing size of the percutaneously drained liver abscesses. 2. New moderate right-sided loculated pleural effusion with right basilar atelectasis. There is mil d left basilar atelectasis that also has worsened from prior. 3. Fluid-containing right inguinal hernia. 4. Mild worsening anasarca. 5. Worsening inguinal lymphadenopathy. POS: TPC
[2019-08-14] MEDS: Lisinopril 20 MG TAB PO SCH (09:23)
[2019-08-14] MEDS: Sodium Chloride 1 GM TAB PO SCH ×3 (09:23→17:29)
[2019-08-14] MEDS: Folic Acid 1 MG TAB PO SCH (09:23)
[2019-08-14] MEDS: Famotidine 20 MG TAB PO SCH ×2 (09:23→21:23)
[2019-08-14] MEDS: Thiamine 100 MG TAB PO SCH (09:23)
[2019-08-14] MEDS: Enoxaparin Sodium 40 MG/0.4 ML SYRINGE SC SCH (09:23)
[2019-08-14] MEDS: Metamucil PACK PO SCH (09:26)
[2019-08-14 09:50] LABS: Band 3 % (5-11); Eosinophils 3 % (0-10); Lymphocytes 25 % (21-51); MDiff Complete? YES; Monocytes 4 % (0-10); Neutrophil 62 % (42-75); Platelet Morphology Comment Appears Increased; Polychromasia SLIGHT = 2-3 cells (100X) (0-2/hpf); Reactive Lymphocytes 3 % (0-10)
[2019-08-14] MEDS ORDERED: Lidocaine 1% (PF) 30 ML VIAL ONE (10:53)
--- NOTE | 2019-08-14 11:16 | PDOC.HOSPP ---
- Subjective Encounter Date: 08/14/19 Encounter Time: 11:14 Subjective: Mr. Hammer was seen today in follow-up. He notes continued pain on the right side. - Objective Vital Signs & Weight: Vital Signs (12 hours) Temp Pulse Resp BP BP BP Pulse Ox 08/14/19 09:23 126/77 08/14/19 07:41 98.2 F 94 20 108/71 95 08/14/19 04:58 98.8 F 94 20 126/77 99 08/14/19 04:00 126/77 08/14/19 00:00 134/73 08/13/19 23:55 98.4 F 96 20 134/73 96 Weight Admit Weight 197 lb 8 oz Weight 197 lb 8 oz I&O: 08/13/19 08/14/19 08/15/19 06:59 06:59 06:59 Intake Total 1350 Output Total 105 110 Balance 1245 -110 Result Diagrams: 08/14/19 08:02 08/14/19 08:02 Hospitalist ROS - Medication Medications: Active Medications Generic Name Dose Route Start Last Admin Trade Name Freq PRN Reason Stop Dose Admin Acetaminophen 650 mg 08/08/19 12:31 08/08/19 19:35 Tylenol PO 650 mg Q4H PRN Administration Headache/Fever/Mild Pain (1-3) Hydrocodone Bitart/Acetaminophen 1 tab 08/08/19 12:31 08/14/19 09:21 [place] 5/325 PO 1 tab Q4H PRN Administration Moderate Pain (4-6) Enoxaparin Sodium 40 mg 08/09/19 09:00 08/14/19 09:23 Lovenox SC 40 mg 0900 RHONDA Administration Famotidine 20 mg 08/08/19 21:00 08/14/19 09:23 Pepcid PO 20 mg BID RHONDA Administration Folic Acid 1 mg 08/10/19 09:00 08/14/19 09:23 Folvite PO 1 mg DAILY RHONDA Administration Meropenem 1 gm/ Device 50 mls @ 100 mls/hr 08/08/19 20:00 08/14/19 04:52 IVPB 50 mls 0400,1200,2000 RHONDA Administration Lisinopril 20 mg 08/13/19 09:00 08/14/19 09:23 Zestril PO 20 mg DAILY RHONDA Administration Morphine Sulfate 2 mg 08/08/19 12:31 08/11/19 04:05 Morphine SLOW IVP 2 mg Q4H PRN Administration Pain Psyllium Hydrophilic Mucilloid 1 pk 08/12/19 09:00 08/14/19 09:26 Metamucil PO Not Given DAILY RHONDA Senna/Docusate Sodium 2 tab 08/08/19 12:31 08/10/19 19:14 Senokot S PO 2 tab BIDPRN PRN Administration Constipation Sodium Chloride 1 gm 08/11/19 08:00 08/14/19 09:23 Sodium Chloride PO 1 gm TID-WM RHONDA Administration Thiamine HCl 100 mg 08/10/19 09:00 08/14/19 09:23 Thiamine PO 100 mg DAILY RHONDA Administration - Exam Eye: PERRL, anicteric sclera Heart: RRR, no murmur, no gallops, no rubs, normal peripheral pulses Respiratory: CTAB (with the exception of some rhonchi at the bases), no wheezes , no rales Gastrointestinal: soft, non-distended, normal bowel sounds, tender to palpation (+ right upper quadrant tenderness) Extremities: no cyanosis, 1+ LE edema (trace pedal edema) Hosp A/P (1) Liver abscess Code(s): K75.0 - ABSCESS OF LIVER Status: Acute (2) Hypertension Code(s): I10 - ESSENTIAL (PRIMARY) HYPERTENSION Status: Acute (3) Anemia, chronic disease Code(s): D63.8 - ANEMIA IN OTHER CHRONIC DISEASES CLASSIFIED ELSEWHERE Status : Acute - Plan * Liver Abscess- Cultures grew Fusobacterium spp. * CT scan of abdomen was significant for a loculated right pleural effusion. Will discuss with Dr. Adams. He may require CV -Surgery evaluation as well * Hyponatremia- Nephrology input appreciated- serum sodium level is now 128- * HTN- blood pressure is stable * Continue Meropenem for now.
--- NOTE | 2019-08-14 11:35 | PRG ---
DATE OF SERVICE: 08/14/2019 SUBJECTIVE: Kameron Clark Jaquelin whom I stop seeing several days ago. Liver abscess and lung issues were normal. CT now shows loculated pleural effusion on the right side. OBJECTIVE: VITAL SIGNS: Temperature 98, pulse 94, blood pressure 126/77, respirations 20, and saturations 95% on room air. CHEST: Decreased breath sounds in right lung. Left unremarkable. CARDIAC: Normal S1 and S2. No gallops. ABDOMEN: No mass. LABORATORY DATA: His white count 25,000. IMPRESSION: Loculated pleural effusion secondary to liver abscess, probably sympathetic,but loculated. It is probably an anaerobe. PLAN: A thoracentesis will be performed as well as pH. Consult CV Surgery. We will follow. Job ID: [id number] MTDD
--- NOTE | 2019-08-14 11:45 | RAD ---
Available for review because CHEST 1 VIEW: DATE: 08/14/2019 TIME: 11:04 AM HISTORY: 59-year-old male status post thoracentesis COMPARISON: 02/16/2011 is not available because of PACS problems. FINDINGS: There is opacification of the lower 75% of the right lung by large pleural effusion and underlying co nsolidation. Right apex is clear. No pneumothorax. 2 pigtail drainage catheters are visualized in the right upper quadrant of the abdomen. Left lung is clear. There is a left-sided PICC with distal t ip overlying SVC/right atrial junction. IMPRESSION: 1. Large right pleural effusion. 2. No pneumothorax.
--- NOTE | 2019-08-14 12:36 | PQF ---
CLINICAL DOCUMENTATION IMPROVEMENT CLARIFICATION FORM: ICD-10 Updated PLEASE DO AN ADDENDUM TO THE PROGRESS NOTE WITH ANY DOCUMENTATION UPDATES OR ADDITIONS AND CARRY THROUGH TO DC SUMMARY. THANK YOU. Date: 08/14/2019; 08/15/2019 ATTN: Dr. Balbuena Please exercise your independent, professional judgment in responding to the clarification form. Clinical indicators are provided on the bottom of this form for your review Please check appropriate box(s): [ ] Protein Calorie Malnutrition: [ ] Mild [ ] Moderate [ ] Severe [ ] Other Malnutrition (please specify) [ ] Underweight without malnutrition [ X ] Other diagnosis _weight loss [ ] Unable to determine In addition, please specify: Present on Admission (POA): [ X ] Yes [ ] No [ ] Unable to determine CLINICAL INDICATORS - SIGNS / SYMPTOMS / LABS / RESULTS AND LOCATION IN MR H&P 08/08: He has lost nearly 35 pounds in the last 3 months now. Sock Drier's Assessment 08/09: Nutrition Diagnosis: Malnutrition Related To unknown etiology/ workup pending for liver abscesses As Evidenced By: 19.7% weight loss over the past 3 months, <75 % energy intake compared to estimated energy needs for >1 month, muscle wasting to biceps and deltoids, suggestive of malnutrition in the context of chronic illness RISKS: 08/09 (Denzel) PMH: Alcoholism. HTN. Assessment: Likely pyogenic liver abscess. TREATMENT: Sock Drier Assessment for Malnutrition Screening Tool score 5. Order 08/09: Supplement: Ensure Enlive BID Moderate Malnutrition (in acute illness) Energy Intake: <75% of estimated energy requirement for > 7 days Weight Loss: 1-2%/1 week; 5%/ 1 month; 7.5%/3 months Other: mild body fat loss; mild muscle mass loss; mild fluid accumulation; Severe Malnutrition (in acute illness) Energy Intake: < 50% of estimated energy requirement for > 5 days Weight Loss: >1-2%/1 week; >5%/1 month; >7.5%/3 months Other: moderate body fat loss; moderate muscle mass loss; moderate- severe fluid accumulation; measurably reduced shafting worker strength Moderate Malnutrition (in chronic illness) Energy Intake: <75% of estimated energy requirement for >1 month Weight Loss: 5%/1 month; 7.5%/3 months; 10%/6 months; 20%/1 year Other: mild body fat loss; mild muscle mass loss; mild fluid accumulation Severe Malnutrition (in chronic illness) Energy Intake: <75% of estimated energy requirement for >1 month Weight Loss: >5%/1 month; >7.5%/3 months; >10%/6 months; >20%/1 year Other: severe body fat loss; severe muscle mass loss; severe fluid accumulation; measurably reduced shafting worker strength Thank you, [email or web address] (This form is maintained as a part of the permanent medical record) 2014 [employer]. All Rights Reserved Jamilah Hills RN, BSN [email or web address] Office: [phone] [facility]
[2019-08-14 12:58] LABS: Fluid, Triglycerides 25 mg/dL (Not Available); Pleural Fluid, Amylase Less than 30 U/L (Not Available); Pleural Fluid, Glucose Less than 20 mg/dL; Pleural Fluid, LDH 899 U/L (Not Available); Pleural Fluid, Protein 2.2 g/dL
[2019-08-14 13:03] LABS: RBC Count-Automated (BF) 9877 /cumm; WBC/Nucleated-Auto (BF) 87 uL
[2019-08-14 13:47] LABS: Body Fluid Source Thoracentesis Fluid
[2019-08-14 13:48] LABS: BF Color Pink; Clarity Cloudy/Turbid (Clear); Tube # EDTA
[2019-08-14 13:54] LABS: BF Segmented Neutrophils 83 %; Cell Count Non Hematic 7 %; Lymphocytes 10 %
[2019-08-14] MEDS ORDERED: Iopamidol 370 76% 100 ML VIAL ONE (14:20)
[2019-08-14] MEDS: Morphine 2 MG/ML SYRINGE SLOW IVP PRN ×2 (14:36→21:48)
[2019-08-14] MEDS ORDERED: Glycopyrrolate 0.2 MG/ML 5 ML SYRINGE ONE (14:45)
[2019-08-14] MEDS ORDERED: Rocuronium Bromide 10 MG/ML (10ML VIAL) ONE (14:45)
[2019-08-14] MEDS ORDERED: Lidocaine 1% PF 5 ML VIAL ONE (14:45)
[2019-08-14] MEDS ORDERED: Dexamethasone 20 MG/5 ML VIAL ONE (14:45)
[2019-08-14] MEDS ORDERED: PROPOFOL 200 MG/20 ML VIAL ONE (14:45)
[2019-08-14] MEDS ORDERED: PHENYLEPHRINE-NS 100 MCG/ML 10 ML SYRINGE ONE (14:45)
[2019-08-14] MEDS ORDERED: Ondansetron PF 4 MG/2 ML Vial ONE (14:45)
[2019-08-14] MEDS ORDERED: Ketorolac Tromethamine 30 MG/ML VIAL ONE (14:45)
--- NOTE | 2019-08-14 14:47 | PRG ---
DATE OF SERVICE: 08/14/2019 SUBJECTIVE: Mr. Hammer had a thoracentesis after the repeat CT abd and chest x- ray demonstrated moderate to large sized pleural effusion on the right side. The fluid characteristics are discussed below. He still has usual pain in the right side. The patient has no abdominal pain or diarrhea. He has been afebrile. LABORATORY DATA: White cell count is went up to 25,000, hemoglobin 9.3, platelets 841 with 3% bands. Chemistry with a creatinine 0.62. Pleural fluid with 87 wbc 's and 9800 rbc's, 82% neutrophils, and protein was 2.2 while the serum protein was 2.6. LDH was 899. PH was 7.2. Glucose less than 20. IMAGING STUDIES: He did have some loculations on the CT of the abdomen, repeat was done. ASSESSMENT AND PLAN: CV Surgery has been consulted and I am not sure according to these results if he is going to need decortication or not. It does not appear that this is related to an accidental puncture of the pleural space by the catheter that was placed in one of the abscesses. This could be just a reactive effusion associated with inflammatory process in the subdiaphragmatic location. Continue meropenem. Job ID: [id number] MTDD
--- NOTE | 2019-08-14 15:39 | CON ---
DATE OF CONSULTATION: HISTORY OF PRESENT ILLNESS: This is a 59-year-old gentleman, who was admitted through the emergency room on 08/08 and found to have a liver abscess. This was drained. He has continued to have elevated white count, and on CT scan done yesterday, he was noted to have a large right pleural effusion, which had not been present on his admission CT scan. Attempted thoracentesis today was unsuccessful with no fluid being removed. PAST MEDICAL HISTORY: 1. Alcoholism. 2. Hypertension. SOCIAL HISTORY: He is a smoker. 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 He is accompanied by his . ALLERGIES: HE HAS NO KNOWN ALLERGIES. PAST SURGICAL HISTORY: Left wrist repair. MEDICATIONS: Prior to admission included: 1. Lasix 20 mg daily. 2. Meloxicam. 3. Flexeril. 4. Lisinopril/hydrochlorothiazide 20/25. 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 PHYSICAL EXAMINATION: GENERAL: On examination, he is alert and cooperative gentleman, in no distress. VITAL SIGNS: With a resting heart rate in the 90s, blood pressure 110 to 120. NECK: He has no carotid bruits. CARDIAC: Regular rate and rhythm. ABDOMEN: He has a dressing on the epigastric area and then again in the right posterior upper lumbar or lower chest area with purulent drainage coming from the posterior drain. His abdomen is somewhat full, prominent, not particularly tender. EXTREMITIES: Without edema. PLAN: At this time, plan for thoracoscopy with attempted decortication, possible thoracotomy and informed consent has been obtained. Job ID: [id number]
[2019-08-14] MEDS ORDERED: Promethazine HCl 25 MG/ML VIAL IM PRN ×2 (16:25)
[2019-08-14] MEDS ORDERED: Ondansetron HCl/PF 4 MG/2 ML Vial IVP PRN ×2 (16:25)
[2019-08-14] MEDS ORDERED: Promethazine HCl 25 MG/ML VIAL SLOW IVP PRN ×2 (16:25)
[2019-08-14] MEDS ORDERED: Fentanyl 100 MCG/2 ML VIAL ONE ×3 (16:27→19:16)
[2019-08-14] MEDS ORDERED: HYDROmorphone 0.5 MG/0.5 ML SYRINGE ONE (16:28)
[2019-08-14] MEDS ORDERED: Bupivacaine 0.25% HCL 30 ML VIAL ONE (16:50)
[2019-08-14] MEDS ORDERED: Bupivacaine PF 0.5% 30 ML VIAL ONE (16:50)
[2019-08-14] MEDS ORDERED: Phenylephrine HCL 10 MG/ML VIAL ONE (17:30)
[2019-08-14] MEDS ORDERED: Lactated Ringer's 1,000 ML IV SCH (19:00)
[2019-08-14] MEDS ORDERED: Ibuprofen 800 MG TAB PO SCH (19:00)
--- NOTE | 2019-08-14 19:09 | RAD ---
ONE VIEW CHEST: 08/14/19 COMPARISON: 08/14/2019 at 11:04 a.m. HISTORY: Decortication. FINDINGS: Interval placement of two right sided chest tubes. The overall degree of opacification of the right h emithorax has decreased. Improved aeration. Residual pleural and parenchymal changes do remain. No de finite pneumothorax. Stable cardiac silhouette. Stable aeration of the left lung. Stable left sided P ICC line. IMPRESSION: Improved aeration of the right lung. There are two right sided chest tubes. Residual pleural and par enchymal changes do remain. POS: PPP
[2019-08-14] MEDS: Ketorolac Tromethamine 30 MG/ML VIAL IVP SCH (23:55)
[2019-08-15] MEDS: Fentanyl 100 MCG/2 ML VIAL SLOW IVP PRN ×2 (03:35→11:14)
[2019-08-15] MEDS: MEROPENEM 1 GM/50 ML 1 GM in Premix Bag 1 BAG IVPB SCH ×3 (04:24→21:11)
[2019-08-15] MEDS: Ketorolac Tromethamine 30 MG/ML VIAL IVP SCH ×4 (06:02→23:38)
[2019-08-15 08:23] LABS: Anion Gap 11 mmol/L (10-20); BUN (Urea Nitrogen) 15 mg/dL (8.4-25.7); Calc. Creatinine Clearance 169 mL/min (70-130); Calcium 8.4 mg/dL (7.8-10.44); Carbon Dioxide 30 mmol/L (22-29); Chloride 89 mmol/L (98-107); Estimated GFR-MDRD Greater than 90; Glucose 124 mg/dL (70-105); Potassium 4.5 mmol/L (3.5-5.1); Sodium 125 mmol/L (136-145)
--- NOTE | 2019-08-15 08:25 | OP ---
DATE OF PROCEDURE: 08/14/2019 PREOPERATIVE DIAGNOSIS: Empyema, right chest. POSTOPERATIVE DIAGNOSIS: Empyema, right chest. PROCEDURE PERFORMED: Thoracoscopy with total lung decortication. ANESTHESIA: General. ESTIMATED BLOOD LOSS: Minimal. DESCRIPTION OF PROCEDURE: After adequate anesthesia had been obtained, the patient was placed in the left lateral decubitus position, prepped and draped. It should be noted that the posterior liver drain appears to have been not secured in the patient and may be out about 3 cm. This was secured to the skin prior to prepping and draping. An incision was made in the posterior axillary line just above the tip of the scapula and chest was entered and scope was placed after cultures were obtained. About 300 mL of thin yellow fluid were aspirated and after inspection, there was multiple more gelatinous accumulations. These were removed with two other incisions to allow manipulation. After about 4 L of irrigation, the lung was fully visualized and had been mobilized off the pericardium and the chest wall. There was also mobilization of the fissures. Following this, a 36 and 32 chest tube were then placed, and the wounds were then closed in layers and the patient is to be taken to the recovery room. Job ID: [id number]
[2019-08-15 08:48] LABS: #Basophils 0.1 thou/uL (0.0-0.2); #Lymphocytes 5.8 thou/uL (1.20-3.40); #Monocytes 0.5 thou/uL (0.11-0.59); #Neutrophils 11.5 thou/uL (1.40-6.50); %Basophils 0.4 % (0.0-1.0); %Eosinophils 0.1 % (0.0-10.0); %Lymphocytes 32.4 % (21.0-51.0); %Neutrophils 64.2 % (42.0-75.0); Band 3 % (5-11); Hemoglobin 8.3 g/dL (14.0-18.0); Lymphocytes 16 % (21-51); MDiff Complete? YES; Mean Corpuscular HGB CONC 31.2 g/dL (32.0-36.0); Mean Corpuscular Hemoglobin 26.5 pg (27.0-31.0); Mean Corpuscular Volume 84.7 fL (78.0-98.0); Mean Platelet Volume 5.6 fL (7.4-10.4); Monocytes 3 % (0-10); Neutrophil 78 % (42-75); Platelet Count 724 thou/uL (130-400); Platelet Morphology Comment Appears Increased; Polychromasia SLIGHT = 2-3 cells (100X) (0-2/hpf); RBC Distribution Width 15.4 % (11.5-14.5); Red Blood Cell (RBC) Count 3.13 mill/uL (4.70-6.10); White Blood Cell (WBC) Count 17.9 thou/uL (4.8-10.8)
--- NOTE | 2019-08-15 08:48 | PDOC.HOSPP ---
- Subjective Encounter Date: 08/15/19 Encounter Time: 08:46 Subjective: Mr. Hammer was seen today in follow-up of liver abscess and now empyema of the right lung. He notes some soreness on the right side, but otherwise ok. - Objective Vital Signs & Weight: Vital Signs (12 hours) Temp BP 08/15/19 07:21 96.8 F L 08/15/19 04:00 97.9 F 08/15/19 00:00 97.9 F 116/63 Weight Admit Weight 197 lb 8 oz Weight 197 lb 8 oz Most Recent Monitor Data Heart Rate from ECG 85 NIBP 136/64 NIBP BP-Mean 88 Respiration from ECG 18 SpO2 97 I&O: 08/14/19 08/15/19 08/16/19 06:59 06:59 06:59 Output Total 110 825 Balance -110 -825 Result Diagrams: 08/14/19 08:02 08/15/19 07:44 Hospitalist ROS - Medication Medications: Active Medications Generic Name Dose Route Start Last Admin Trade Name Freq PRN Reason Stop Dose Admin Acetaminophen 650 mg 08/08/19 12:31 08/08/19 19:35 Tylenol PO 650 mg Q4H PRN Administration Headache/Fever/Mild Pain (1-3) Hydrocodone Bitart/Acetaminophen 1 tab 08/08/19 12:31 08/14/19 09:21 [place] 5/325 PO 1 tab Q4H PRN Administration Moderate Pain (4-6) Enoxaparin Sodium 40 mg 08/09/19 09:00 08/14/19 09:23 Lovenox SC 40 mg 0900 RHONDA Administration Famotidine 20 mg 08/08/19 21:00 08/14/19 21:23 Pepcid PO 20 mg BID RHONDA Administration Fentanyl 50 mcg 08/14/19 19:15 08/15/19 03:35 Sublimaze SLOW IVP 08/16/19 18:33 50 mcg Q2H PRN Administration Severe Pain (7-10) Folic Acid 1 mg 08/10/19 09:00 08/14/19 09:23 Folvite PO 1 mg DAILY RHONDA Administration Meropenem 1 gm/ Device 50 mls @ 100 mls/hr 08/08/19 20:00 08/15/19 04:24 IVPB 50 mls 0400,1200,2000 RHONDA Administration Ketorolac Tromethamine 15 mg 08/14/19 23:59 08/15/19 06:02 Toradol IVP 08/19/19 23:59 15 mg Q6HR RHONDA Administration Lisinopril 20 mg 08/13/19 09:00 08/14/19 09:23 Zestril PO 20 mg DAILY RHONDA Administration Psyllium Hydrophilic Mucilloid 1 pk 08/12/19 09:00 08/14/19 09:26 Metamucil PO Not Given DAILY RHONDA Senna/Docusate Sodium 2 tab 08/08/19 12:31 08/10/19 19:14 Senokot S PO 2 tab BIDPRN PRN Administration Constipation Sodium Chloride 1 gm 08/11/19 08:00 08/14/19 17:29 Sodium Chloride PO Not Given TID-WM RHONDA Thiamine HCl 100 mg 08/10/19 09:00 08/14/19 09:23 Thiamine PO 100 mg DAILY RHONDA Administration - Exam Eye: PERRL Heart: RRR, no murmur, no gallops, no rubs, normal peripheral pulses (+ rales both lung giraldo, no rhonchi) Respiratory: no wheezes, no ronchi Gastrointestinal: soft, non-tender, non-distended, normal bowel sounds, no palpable masses, no hepatomegaly Extremities: no cyanosis, no clubbing, 1+ LE edema (pitting edema in both feet) Hosp A/P (1) Liver abscess Code(s): K75.0 - ABSCESS OF LIVER Status: Acute (2) Hypertension Code(s): I10 - ESSENTIAL (PRIMARY) HYPERTENSION Status: Acute (3) Anemia, chronic disease Code(s): D63.8 - ANEMIA IN OTHER CHRONIC DISEASES CLASSIFIED ELSEWHERE Status : Acute - Plan * 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
[2019-08-15] MEDS: HYDROcodone/Acetaminophen 5/325 mg Tablet PO PRN ×3 (08:54→21:17)
--- NOTE | 2019-08-15 08:54 | OP ---
DATE OF PROCEDURE: 08/14/2019 PROCEDURE PERFORMED: Thoracentesis. INDICATION: Loculated pleural effusion. DESCRIPTION OF PROCEDURE: After informed consent, the right posterior thorax was cleaned with chlorhexidine. Lidocaine was infiltrated into 9th intercostal space in the midscapular line. Pleural cavity was entered in and about 3 mL of turbid yellow fluid was removed, was just sent for pH. No further fluid was obtained from this area. The 9th intercostal space in the midaxillary line was infiltrated with lidocaine. Again, a very small quantity of fluid was obtained suggesting the fluid was loculated. A third space was infiltrated 8th in the midscapular area and once again a very small amount of fluid was obtained. The fluid was being sent for appropriate studies including culture more than likely this was a loculated fluid. These findings were discussed with the patient. He understands and agrees to proceed. Job ID: [id number]
[2019-08-15] MEDS: Sodium Chloride 1 GM TAB PO SCH ×3 (08:55→17:26)
[2019-08-15] MEDS: Folic Acid 1 MG TAB PO SCH (08:55)
[2019-08-15] MEDS: Famotidine 20 MG TAB PO SCH ×2 (08:55→21:12)
[2019-08-15] MEDS: Enoxaparin Sodium 40 MG/0.4 ML SYRINGE SC SCH (08:55)
[2019-08-15] MEDS: Metamucil PACK PO SCH (08:55)
[2019-08-15] MEDS: Thiamine 100 MG TAB PO SCH (08:55)
[2019-08-15] MEDS: Lisinopril 20 MG TAB PO SCH (08:55)
--- NOTE | 2019-08-15 09:06 | PRG ---
DATE OF SERVICE: 08/15/2019 SUBJECTIVE: Kameron Pelayo remains in the MICU, status post decortication, much improved x-ray. OBJECTIVE: VITAL SIGNS: Temperature 96, blood pressure 136/64, pulse 80, and respiratory rate 18. CHEST: No wheezing or crackles. CARDIAC: Normal S1 and S2. No gallops. ABDOMEN: No mass. LABORATORY DATA: Unremarkable. Sodium 125. Otherwise, white count 17,000. IMPRESSION: Anaerobic liver infection and sympathetic pleural effusion, but loculated decortication. PLAN: Continue meropenem, neb treatments, and supportive care. We will follow. Job ID: [id number]
--- NOTE | 2019-08-15 09:40 | RAD ---
PORTABLE CHEST: Date: 08/15/2019 PROVIDED CLINICAL HISTORY: Decortication. FINDINGS: Comparison made with the examination of 08/14/2019. Significant interval change with respect to the prior examination is not apparent. IMPRESSION: As above. POS: OFF
--- NOTE | 2019-08-15 14:56 | PQF ---
CLINICAL DOCUMENTATION IMPROVEMENT CLARIFICATION FORM: ICD-10 Updated PLEASE DO AN ADDENDUM TO THE PROGRESS NOTE WITH ANY DOCUMENTATION UPDATES OR ADDITIONS AND CARRY THROUGH TO DC SUMMARY. THANK YOU. DATE: 08/15/2019 ATTN: Dr. Balbuena Please exercise your independent, professional judgment in responding to the clarification form. Clinical indicators are provided on the bottom of this form for your review Please check appropriate box(s) to clarify if the following diagnosis has been ruled in or ruled out: SEPSIS [ ] Ruled in diagnosis [ ] Continue to treat [ ] Resolved [ ] Ruled out diagnosis [ ] Cannot rule out diagnosis [ ] Other diagnosis [ ] Unable to determine In addition, please specify: Present on Admission (POA): [ ] Yes [ ] No [ ] Unable to determine For continuity of documentation, please document condition throughout progress notes and discharge summary. Thank You. CLINICAL INDICATORS - SIGNS / SYMPTOMS / LABS / RESULTS AND LOCATION IN MR H&P 08/08: REASON FOR ADMISSION: Large liver abscess x2, sepsis. VS: BP 118/62 pulse 115, resp. 20, temp. 100.8 White count of 27 08/13 (Jerry) History is that of 59 yr old, who was brought in with large liver abscess and sepsis, noted with low sodium in the 120 range. 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 and recently developed loculated r pleural effusion - s/p decortication RISKS: H&P 08/08: suspected large liver abscesses x2. TREATMENT: ID CONSULT ordered 08/08 MAR: Order 08/08: Meropenem 1 gm IV Thank you, Jamilah (This form is maintained as a part of the permanent medical record) 2014 [employer]. All Rights Reserved Jamilah Hills RN, BSN [email or web address] Office: [phone] [facility]
[2019-08-16] MEDS: MEROPENEM 1 GM/50 ML 1 GM in Premix Bag 1 BAG IVPB SCH ×3 (04:47→20:48)
[2019-08-16] MEDS: Ketorolac Tromethamine 30 MG/ML VIAL IVP SCH ×3 (04:48→17:19)
[2019-08-16] MEDS: Senokot S 8.6-50 MG TAB PO PRN ×2 (05:00→09:02)
[2019-08-16 05:33] LABS: #Basophils 0.2 thou/uL (0.0-0.2); #Eosinphils 0.1 thou/uL (0.0-0.7); #Lymphocytes 5.6 thou/uL (1.20-3.40); #Monocytes 0.8 thou/uL (0.11-0.59); #Neutrophils 9.6 thou/uL (1.40-6.50); %Eosinophils 0.7 % (0.0-10.0); %Lymphocytes 34.4 % (21.0-51.0); %Monocytes 4.9 % (0.0-10.0); Hemoglobin 7.5 g/dL (14.0-18.0); Mean Corpuscular HGB CONC 31.7 g/dL (32.0-36.0); Mean Corpuscular Hemoglobin 27.2 pg (27.0-31.0); Mean Corpuscular Volume 85.8 fL (78.0-98.0); Mean Platelet Volume 5.5 fL (7.4-10.4); Platelet Count 782 thou/uL (130-400); RBC Distribution Width 15.3 % (11.5-14.5); Red Blood Cell (RBC) Count 2.74 mill/uL (4.70-6.10); White Blood Cell (WBC) Count 16.3 thou/uL (4.8-10.8)
[2019-08-16 05:54] LABS: Anion Gap 12 mmol/L (10-20); BUN (Urea Nitrogen) 20 mg/dL (8.4-25.7); Calc. Creatinine Clearance 164 mL/min (70-130); Calcium 8.1 mg/dL (7.8-10.44); Carbon Dioxide 28 mmol/L (22-29); Chloride 94 mmol/L (98-107); Estimated GFR-MDRD Greater than 90; Glucose 85 mg/dL (70-105); Potassium 4.7 mmol/L (3.5-5.1); Sodium 129 mmol/L (136-145)
[2019-08-16] MEDS: Enoxaparin Sodium 40 MG/0.4 ML SYRINGE SC SCH (09:02)
[2019-08-16] MEDS: Sodium Chloride 1 GM TAB PO SCH ×3 (09:02→17:19)
[2019-08-16] MEDS: Famotidine 20 MG TAB PO SCH ×2 (09:02→20:47)
[2019-08-16] MEDS: Folic Acid 1 MG TAB PO SCH (09:09)
[2019-08-16] MEDS: Thiamine 100 MG TAB PO SCH (09:09)
[2019-08-16] MEDS: Lisinopril 20 MG TAB PO SCH (09:10)
[2019-08-16] MEDS: Metamucil PACK PO SCH (09:11)
--- NOTE | 2019-08-16 10:59 | PDOC.HOSPP ---
- Subjective Encounter Date: 08/16/19 Encounter Time: 09:00 Subjective: got his right chest tube out, feels good no sob, is amb in hallway - Objective Vital Signs & Weight: Vital Signs (12 hours) Temp Pulse Resp BP BP Pulse Ox 08/16/19 09:10 127/74 08/16/19 08:30 95 08/16/19 08:00 127/74 08/16/19 07:25 85 16 95 08/16/19 04:00 96 08/16/19 03:11 98 F 84 16 151/84 H 96 08/16/19 00:00 145/77 H 98 08/15/19 23:25 97.1 F L 85 16 145/77 H 97 Weight Admit Weight 197 lb 8 oz Weight 197 lb 8 oz Most Recent Monitor Data Heart Rate from ECG 98 NIBP 134/62 NIBP BP-Mean 86 Respiration from ECG 26 SpO2 98 I&O: 08/15/19 08/16/19 08/17/19 06:59 06:59 06:59 Intake Total 100 Output Total 825 85 Balance -825 15 Result Diagrams: 08/16/19 05:04 08/16/19 05:04 Hospitalist ROS - Medication Medications: Active Medications Generic Name Dose Route Start Last Admin Trade Name Freq PRN Reason Stop Dose Admin Acetaminophen 650 mg 08/08/19 12:31 08/08/19 19:35 Tylenol PO 650 mg Q4H PRN Administration Headache/Fever/Mild Pain (1-3) Hydrocodone Bitart/Acetaminophen 1 tab 08/08/19 12:31 08/15/19 21:17 [place] 5/325 PO 1 tab Q4H PRN Administration Moderate Pain (4-6) Albuterol/Ipratropium 3 ml 08/15/19 12:30 08/16/19 07:25 Duoneb NEB 3 ml TID-RT RHONDA Administration Enoxaparin Sodium 40 mg 08/09/19 09:00 08/16/19 09:02 Lovenox SC 40 mg 0900 RHONDA Administration Famotidine 20 mg 08/08/19 21:00 08/16/19 09:02 Pepcid PO 20 mg BID RHONDA Administration Fentanyl 50 mcg 08/14/19 19:15 08/15/19 11:14 Sublimaze SLOW IVP 08/16/19 18:33 50 mcg Q2H PRN Administration Severe Pain (7-10) Folic Acid 1 mg 08/10/19 09:00 08/16/19 09:09 Folvite PO 1 mg DAILY RHONDA Administration Meropenem 1 gm/ Device 50 mls @ 100 mls/hr 08/08/19 20:00 08/16/19 04:47 IVPB 50 mls 0400,1200,2000 RHONDA Administration Ketorolac Tromethamine 15 mg 08/14/19 23:59 08/16/19 04:48 Toradol IVP 08/19/19 23:59 15 mg Q6HR RHONDA Administration Lisinopril 20 mg 08/13/19 09:00 08/16/19 09:10 Zestril PO 20 mg DAILY RHONDA Administration Polyethylene Glycol 17 gm 08/11/19 09:36 08/16/19 09:04 Miralax PO 17 gm DAILYPRN PRN Administration Constipation Psyllium Hydrophilic Mucilloid 1 pk 08/12/19 09:00 08/16/19 09:11 Metamucil PO 1 pk DAILY RHONDA Administration Senna/Docusate Sodium 2 tab 08/08/19 12:31 08/16/19 09:02 Senokot S PO 2 tab BIDPRN PRN Administration Constipation Sodium Chloride 1 gm 08/11/19 08:00 08/16/19 09:02 Sodium Chloride PO 1 gm TID-WM RHONDA Administration Sodium Chloride 10 ml 08/15/19 21:00 08/16/19 09:11 Flush - Normal Saline IVF 10 ml BID RHONDA Administration Thiamine HCl 100 mg 08/10/19 09:00 08/16/19 09:09 Thiamine PO 100 mg DAILY RHONDA Administration - Exam General Appearance: awake alert Eye: PERRL, anicteric sclera ENT: no oropharyngeal lesions, moist mucosa Neck: supple, no JVD Heart: RRR, no murmur Respiratory: no wheezes, no rales Gastrointestinal: soft, non-tender, non-distended, normal bowel sounds Gastrointestinal - other findings: 2 pig tail cath draining purulent material+ Extremities: no cyanosis, 1+ LE edema Neurological: cranial nerve grossly intact, no focal deficits Psychiatric: normal affect, A&O x 3 Hosp A/P (1) Liver abscess Code(s): K75.0 - ABSCESS OF LIVER Status: Acute (2) Sepsis Code(s): A41.9 - SEPSIS, UNSPECIFIED ORGANISM Status: Acute Qualifiers: Sepsis acute organ dysfunction status: with acute organ dysfunction Hepatic coma status: without hepatic coma Severe sepsis shock status: without septic shock (3) Moderate protein malnutrition Code(s): E44.0 - MODERATE PROTEIN-CALORIE MALNUTRITION Status: Acute (4) Alcohol abuse Code(s): F10.10 - ALCOHOL ABUSE, UNCOMPLICATED Status: Chronic (5) Anemia, chronic disease Code(s): D63.8 - ANEMIA IN OTHER CHRONIC DISEASES CLASSIFIED ELSEWHERE Status : Chronic (6) Hypertension Code(s): I10 - ESSENTIAL (PRIMARY) HYPERTENSION Status: Chronic Qualifiers: Hypertension type: essential hypertension Qualified Code(s): I10 - Essential (primary) hypertension (7) Empyema lung Code(s): J86.9 - PYOTHORAX WITHOUT FISTULA Status: Resolved - Plan is on meropenem 1g q8h, liver abscess cultures are growing fusobacterium species on thiamine and folic acid for chr alc use got his chest tubes removed today 08/16 percut cath from liver abscess are draining purulent material x2 has picc line continue lisinopril, nebs, fentanyl/toradol prn hemostable
--- NOTE | 2019-08-16 13:47 | PRG ---
DATE OF SERVICE: 08/16/2019 SUBJECTIVE: Mr. Hammer says he is doing better. I believe he had his chest tube removed today. OBJECTIVE: VITAL SIGNS: He is afebrile, heart rate is 91, respiratory rate is 18, oximetry is 100%, blood pressure 144/83. He still has anterior and posterior abdominal drain it appears. LUNGS: Clear. HEART: Regular rhythm. ABDOMEN: Soft. EXTREMITIES: He is ambulating in the room without difficulty. LABORATORY DATA: White count 16.3, hemoglobin 7.5, platelets 782, I suspect this is reactive thrombocytosis. Sodium 129, potassium 4.7, chloride 94, bicarb 28, BUN 20, creatinine 0.63. IMPRESSION: 1. 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 2. Status post loculated pleural effusion, requiring decortication. Overall, he appears to be slowly improving. Job ID: [id number]
[2019-08-16] MEDS: HYDROcodone/Acetaminophen 5/325 mg Tablet PO PRN (20:47)
[2019-08-17] MEDS: Ketorolac Tromethamine 30 MG/ML VIAL IVP SCH ×4 (00:18→17:11)
[2019-08-17] MEDS: HYDROcodone/Acetaminophen 5/325 mg Tablet PO PRN (03:18)
[2019-08-17] MEDS: Senokot S 8.6-50 MG TAB PO PRN (03:19)
[2019-08-17] MEDS: MEROPENEM 1 GM/50 ML 1 GM in Premix Bag 1 BAG IVPB SCH ×3 (03:26→20:38)
[2019-08-17] MEDS: Metamucil PACK PO SCH (08:38)
[2019-08-17] MEDS: Famotidine 20 MG TAB PO SCH ×2 (08:38→20:39)
[2019-08-17] MEDS: Sodium Chloride 1 GM TAB PO SCH ×3 (08:38→17:11)
[2019-08-17] MEDS: Thiamine 100 MG TAB PO SCH (08:38)
[2019-08-17] MEDS: Lisinopril 20 MG TAB PO SCH (08:38)
[2019-08-17] MEDS: Folic Acid 1 MG TAB PO SCH (08:38)
[2019-08-17] MEDS: Enoxaparin Sodium 40 MG/0.4 ML SYRINGE SC SCH (08:39)
--- NOTE | 2019-08-17 11:02 | PDOC.HOSPP ---
- Subjective Encounter Date: 08/17/19 Encounter Time: 08:00 Subjective: no sob, is amb in hallway no abd pain, tolerating oral diet - Objective Vital Signs & Weight: Vital Signs (12 hours) Temp Pulse Resp BP BP Pulse Ox 08/17/19 08:38 155/71 H 08/17/19 08:00 155/71 H 08/17/19 07:23 97.9 F 81 14 105/71 100 08/17/19 07:11 80 14 08/17/19 03:48 96 08/17/19 03:32 120/71 08/17/19 03:07 98.2 F 85 16 120/71 96 08/17/19 00:00 92 L 08/16/19 23:02 98.6 F 93 16 141/56 H 92 L Weight Admit Weight 197 lb 8 oz Weight 197 lb 8 oz Most Recent Monitor Data Heart Rate from ECG 98 NIBP 134/62 NIBP BP-Mean 86 Respiration from ECG 26 SpO2 98 I&O: 08/16/19 08/17/19 08/18/19 06:59 06:59 06:59 Intake Total 100 1350 Output Total 85 33 Balance 15 1317 Result Diagrams: 08/16/19 05:04 08/16/19 05:04 Hospitalist ROS - Medication Medications: Active Medications Generic Name Dose Route Start Last Admin Trade Name Freq PRN Reason Stop Dose Admin Acetaminophen 650 mg 08/08/19 12:31 08/08/19 19:35 Tylenol PO 650 mg Q4H PRN Administration Headache/Fever/Mild Pain (1-3) Hydrocodone Bitart/Acetaminophen 1 tab 08/08/19 12:31 08/17/19 03:18 [place] 5/325 PO 1 tab Q4H PRN Administration Moderate Pain (4-6) Albuterol/Ipratropium 3 ml 08/15/19 12:30 08/17/19 07:11 Duoneb NEB 3 ml TID-RT RHONDA Administration Enoxaparin Sodium 40 mg 08/09/19 09:00 08/17/19 08:39 Lovenox SC 40 mg 0900 RHONDA Administration Famotidine 20 mg 08/08/19 21:00 08/17/19 08:38 Pepcid PO 20 mg BID RHONDA Administration Folic Acid 1 mg 08/10/19 09:00 08/17/19 08:38 Folvite PO 1 mg DAILY RHONDA Administration Meropenem 1 gm/ Device 50 mls @ 100 mls/hr 08/08/19 20:00 08/17/19 03:26 IVPB 50 mls 0400,1200,2000 RHONDA Administration Ketorolac Tromethamine 15 mg 08/14/19 23:59 08/17/19 06:06 Toradol IVP 08/19/19 23:59 15 mg Q6HR RHONDA Administration Lisinopril 20 mg 08/13/19 09:00 08/17/19 08:38 Zestril PO 20 mg DAILY RHONDA Administration Polyethylene Glycol 17 gm 08/11/19 09:36 08/16/19 09:04 Miralax PO 17 gm DAILYPRN PRN Administration Constipation Psyllium Hydrophilic Mucilloid 1 pk 08/12/19 09:00 08/17/19 08:38 Metamucil PO 1 pk DAILY RHONDA Administration Senna/Docusate Sodium 2 tab 08/08/19 12:31 08/17/19 03:19 Senokot S PO 2 tab BIDPRN PRN Administration Constipation Sodium Chloride 1 gm 08/11/19 08:00 08/17/19 08:38 Sodium Chloride PO 1 gm TID-WM RHONDA Administration Sodium Chloride 10 ml 08/15/19 21:00 08/17/19 08:42 Flush - Normal Saline IVF 10 ml BID RHONDA Administration Thiamine HCl 100 mg 08/10/19 09:00 08/17/19 08:38 Thiamine PO 100 mg DAILY RHONDA Administration - Exam General Appearance: awake alert Eye: PERRL, anicteric sclera ENT: no oropharyngeal lesions, moist mucosa Neck: supple, no JVD Heart: RRR, no murmur Respiratory: no wheezes, no rales Gastrointestinal: soft, non-distended, normal bowel sounds Gastrointestinal - other findings: pig tail cath x2+ Extremities: no cyanosis, no edema Neurological: cranial nerve grossly intact, no focal deficits Psychiatric: normal affect, A&O x 3 Hosp A/P (1) Liver abscess Code(s): K75.0 - ABSCESS OF LIVER Status: Acute (2) Sepsis Code(s): A41.9 - SEPSIS, UNSPECIFIED ORGANISM Status: Acute Qualifiers: Sepsis acute organ dysfunction status: with acute organ dysfunction Hepatic coma status: without hepatic coma Severe sepsis shock status: without septic shock (3) Moderate protein malnutrition Code(s): E44.0 - MODERATE PROTEIN-CALORIE MALNUTRITION Status: Acute (4) Alcohol abuse Code(s): F10.10 - ALCOHOL ABUSE, UNCOMPLICATED Status: Chronic (5) Anemia, chronic disease Code(s): D63.8 - ANEMIA IN OTHER CHRONIC DISEASES CLASSIFIED ELSEWHERE Status : Chronic (6) Hypertension Code(s): I10 - ESSENTIAL (PRIMARY) HYPERTENSION Status: Chronic Qualifiers: Hypertension type: essential hypertension Qualified Code(s): I10 - Essential (primary) hypertension (7) Empyema lung Code(s): J86.9 - PYOTHORAX WITHOUT FISTULA Status: Resolved - Plan is on meropenem 1g q8h, 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
--- NOTE | 2019-08-17 11:20 | PRG ---
DATE OF SERVICE: 08/17/2019 SUBJECTIVE: Kameron Hammer is in no distress. He says he is feeling better. He has had minimal drainage out of his drains. OBJECTIVE: VITAL SIGNS: Blood pressure is 155/71 and heart rate is 81. He is afebrile, respiratory rates in the teens, and oximetry is 100% on room air. LUNGS: Clear. IMPRESSION AND PLAN: 1. Status post decortication. 2. Liver abscess. Pathology on his pleural fluid still pending. Job ID: [id number]
--- NOTE | 2019-08-17 12:14 | RAD ---
Portable frontal chest radiograph: 08/17/2019 COMPARISON: 08/15/2019 HISTORY: Decortication surgery FINDINGS: 2 incompletely imaged pigtail catheters overlie the right upper quadrant/right lung base. R ight chest tubes have been removed since the prior exam. Stable left PICC. Dense pleural and parenchymal opacity noted in the right lung base with blunting of right costophrenic angle and obscur ation of right hemidiaphragm, not significantly changed. No evidence for pneumothorax. IMPRESSION: Dense pleural and parenchymal opacity in the right lung base, nonspecific. Continued foll ow-up to resolution advised.
--- NOTE | 2019-08-17 17:39 | PRG ---
DATE OF SERVICE: 08/17/2019 SUBJECTIVE: The patient had a chest tube still in place after decortication, feels better overall, not much pain. No vomiting. No respiratory symptoms outside the chest pain from the chest tube. No abdominal pain or diarrhea. OBJECTIVE: VITAL SIGNS: He has been afebrile. Other vital signs with slight elevation of systolic blood pressure. GENERAL: Oriented, pleasant. LUNGS: Diminished breath sounds, right side. Chest tube in place. HEART: S1, S2. Regular rate. ABDOMEN: Soft, nondistended or tender. EXTREMITIES: Moves extremities equally. LABORATORY DATA AND IMAGING: White cell count 16.3, hemoglobin 7.5, platelets 782. Chemistries with creatinine of 0.63. Microbiology with fusobacterium. The pleural fluid is negative thus far, final results. Chest x-ray with the density in the right lower lung base. ASSESSMENT AND DISCUSSION: Fusobacterium liver abscess and then associated loculated pleural effusion are most likely due to transdiaphragmatic passage of inflammatory fluid toward the pleural space. The other possibility is that the patient had hematogenous spread to the base of the lung, which is possible in the case of fusobacterium associated Lemierre syndrome. Plan is to continue IV antimicrobial therapy after discharge and then eventual transition to oral Flagyl. Job ID: [id number]
[2019-08-18] MEDS: Ketorolac Tromethamine 30 MG/ML VIAL IVP SCH ×2 (00:12→05:49)
[2019-08-18] MEDS: MEROPENEM 1 GM/50 ML 1 GM in Premix Bag 1 BAG IVPB SCH ×3 (04:17→20:00)
[2019-08-18] MEDS: HYDROcodone/Acetaminophen 5/325 mg Tablet PO PRN ×4 (04:18→16:53)
[2019-08-18] MEDS: Lisinopril 20 MG TAB PO SCH (08:17)
[2019-08-18] MEDS: Famotidine 20 MG TAB PO SCH ×2 (08:17→20:01)
[2019-08-18] MEDS: Sodium Chloride 1 GM TAB PO SCH ×3 (08:17→16:24)
[2019-08-18] MEDS: Thiamine 100 MG TAB PO SCH (08:17)
[2019-08-18] MEDS: Folic Acid 1 MG TAB PO SCH (08:18)
[2019-08-18] MEDS: Metamucil PACK PO SCH (08:18)
[2019-08-18] MEDS: Enoxaparin Sodium 40 MG/0.4 ML SYRINGE SC SCH (08:18)
--- NOTE | 2019-08-18 09:36 | PRG ---
DATE OF SERVICE: 08/18/2019 SUBJECTIVE: This morning, he is awake, alert, responsive, right-sided chest pain, but no shortness of breath. OBJECTIVE: VITAL SIGNS: Temperature 98, pulse 86, blood pressure 156/60, respirations 14, saturations 100%. CHEST: Decreased breath sounds in right lung, left lung unremarkable. CARDIAC: Normal S1 and S2. No gallops. ABDOMEN: No masses. IMPRESSION: 1. Right-sided anaerobic infection. 2. Liver abscess, status post drainage. PLAN: Continue PT, supportive care. Eventually, disposition as per Infectious Disease and check. Job ID: [id number]
--- NOTE | 2019-08-18 12:57 | PDOC.HOSPP ---
- Subjective Encounter Date: 08/18/19 Encounter Time: 10:00 Subjective: no sob or pain is amb in hallway has LE edema - Objective Vital Signs & Weight: Vital Signs (12 hours) Temp Pulse Resp BP BP Pulse Ox 08/18/19 11:04 98.1 F 79 16 161/80 H 99 08/18/19 08:17 156/60 H 08/18/19 07:40 98.0 F 86 14 156/60 H 100 08/18/19 07:27 78 16 100 08/18/19 04:07 98.5 F 87 16 158/87 H 96 Weight Admit Weight 197 lb 8 oz Weight 197 lb 8 oz Most Recent Monitor Data Heart Rate from ECG 98 NIBP 134/62 NIBP BP-Mean 86 Respiration from ECG 26 SpO2 98 I&O: 08/17/19 08/18/19 08/19/19 06:59 06:59 06:59 Intake Total 1350 760 Output Total 33 30 Balance 1317 730 Result Diagrams: 08/16/19 05:04 08/16/19 05:04 Hospitalist ROS - Medication Medications: Active Medications Generic Name Dose Route Start Last Admin Trade Name Freq PRN Reason Stop Dose Admin Acetaminophen 650 mg 08/08/19 12:31 08/08/19 19:35 Tylenol PO 650 mg Q4H PRN Administration Headache/Fever/Mild Pain (1-3) Hydrocodone Bitart/Acetaminophen 1 tab 08/08/19 12:31 08/18/19 12:51 Proctor 5/325 PO 1 tab Q4H PRN Administration Moderate Pain (4-6) Albuterol/Ipratropium 3 ml 08/15/19 12:30 08/18/19 07:27 Duoneb NEB 3 ml TID-RT RHONDA Administration Enoxaparin Sodium 40 mg 08/09/19 09:00 08/18/19 08:18 Lovenox SC 40 mg 0900 RHONDA Administration Famotidine 20 mg 08/08/19 21:00 08/18/19 08:17 Pepcid PO 20 mg BID RHONDA Administration Folic Acid 1 mg 08/10/19 09:00 08/18/19 08:18 Folvite PO 1 mg DAILY RHONDA Administration Meropenem 1 gm/ Device 50 mls @ 100 mls/hr 08/08/19 20:00 08/18/19 11:28 IVPB 50 mls 0400,1200,2000 RHONDA Administration Lisinopril 20 mg 08/13/19 09:00 08/18/19 08:17 Zestril PO 20 mg DAILY RHONDA Administration Polyethylene Glycol 17 gm 08/11/19 09:36 08/16/19 09:04 Miralax PO 17 gm DAILYPRN PRN Administration Constipation Psyllium Hydrophilic Mucilloid 1 pk 08/12/19 09:00 08/18/19 08:18 Metamucil PO 1 pk DAILY RHONDA Administration Senna/Docusate Sodium 2 tab 08/08/19 12:31 08/17/19 03:19 Senokot S PO 2 tab BIDPRN PRN Administration Constipation Sodium Chloride 1 gm 08/11/19 08:00 08/18/19 11:28 Sodium Chloride PO 1 gm TID-WM RHONDA Administration Sodium Chloride 10 ml 08/15/19 21:00 08/18/19 08:17 Flush - Normal Saline IVF 10 ml BID RHONDA Administration Thiamine HCl 100 mg 08/10/19 09:00 08/18/19 08:17 Thiamine PO 100 mg DAILY RHONDA Administration - Exam General Appearance: awake alert Eye: PERRL, anicteric sclera ENT: no oropharyngeal lesions, moist mucosa Neck: supple, no JVD Heart: RRR, no murmur Respiratory: no wheezes, no rales Gastrointestinal: soft, non-distended, normal bowel sounds Gastrointestinal - other findings: per cut cath+ x2 Extremities: no cyanosis, 2+ LE edema Neurological: cranial nerve grossly intact, no focal deficits Psychiatric: normal affect, A&O x 3 Hosp A/P (1) Liver abscess Code(s): K75.0 - ABSCESS OF LIVER Status: Acute (2) Sepsis Code(s): A41.9 - SEPSIS, UNSPECIFIED ORGANISM Status: Acute Qualifiers: Sepsis acute organ dysfunction status: with acute organ dysfunction Hepatic coma status: without hepatic coma Severe sepsis shock status: without septic shock (3) Moderate protein malnutrition Code(s): E44.0 - MODERATE PROTEIN-CALORIE MALNUTRITION Status: Acute (4) Alcohol abuse Code(s): F10.10 - ALCOHOL ABUSE, UNCOMPLICATED Status: Chronic (5) Anemia, chronic disease Code(s): D63.8 - ANEMIA IN OTHER CHRONIC DISEASES CLASSIFIED ELSEWHERE Status : Chronic (6) Hypertension Code(s): I10 - ESSENTIAL (PRIMARY) HYPERTENSION Status: Chronic Qualifiers: Hypertension type: essential hypertension Qualified Code(s): I10 - Essential (primary) hypertension (7) Empyema lung Code(s): J86.9 - PYOTHORAX WITHOUT FISTULA Status: Resolved - Plan is on meropenem 1g q8h, 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 percut cath from liver abscess are draining purulent material x2 has picc line continue lisinopril, nebs, fentanyl/toradol prn add lasix po daily and maura hose to LE hemostable
[2019-08-19] MEDS: HYDROcodone/Acetaminophen 5/325 mg Tablet PO PRN ×2 (00:05→06:40)
[2019-08-19] MEDS: MEROPENEM 1 GM/50 ML 1 GM in Premix Bag 1 BAG IVPB SCH ×2 (04:22→14:13)
[2019-08-19] MEDS ORDERED: Furosemide 40 MG TAB PO SCH (07:30)
[2019-08-19 07:50] VITALS: TEMP 97.9
--- NOTE | 2019-08-19 09:01 | PRG ---
DATE OF SERVICE: 08/19/2019 SUBJECTIVE: He is awake, alert, and responsive. OBJECTIVE: VITAL SIGNS: Temperature 97, pulse 80, respiratory rate 16, saturations 97% on room air, blood pressure 160/77. GENERAL: Denies any pain or shortness of breath. CHEST: Decreased breath sounds in right lung, left unremarkable. CARDIAC: Normal S1 and S2. No gallops. ABDOMEN: No mass. IMPRESSION: 1. Empyema. 2. Loculated effusion. 3. Liver abscess, multiple. PLAN: Awaiting placement for long-term IV antibiotics. Pulmonary [place], he is stable. He is advised to refrain from drinking and smoking. Job ID: [id number]
[2019-08-19] MEDS: Enoxaparin Sodium 40 MG/0.4 ML SYRINGE SC SCH (09:40)
[2019-08-19] MEDS: Famotidine 20 MG TAB PO SCH (09:40)
[2019-08-19] MEDS: Lisinopril 20 MG TAB PO SCH (09:40)
[2019-08-19] MEDS: Thiamine 100 MG TAB PO SCH (09:41)
[2019-08-19] MEDS: Metamucil PACK PO SCH (09:42)
[2019-08-19] MEDS: Folic Acid 1 MG TAB PO SCH (09:42)
[2019-08-19] MEDS: Sodium Chloride 1 GM TAB PO SCH ×2 (09:44→14:14)
[2019-08-19 11:45] VITALS: BP 147/74
--- NOTE | 2019-08-19 16:35 | DIS ---
DATE OF ADMISSION: 08/08/2019 DATE OF DISCHARGE: 08/19/2019 DISCHARGE DISPOSITION: Home. 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 PROCEDURES DONE DURING HOSPITALIZATION: The patient had large masses in the liver, most compatible with liver abscess. He had a 17.5 cm in transverse dimension abscess spanning right and left hepatic lobes. His second abscess was measuring 10 cm in craniocaudal dimension involving the posterior segment of the right hepatic lobe. Liver was enlarged measuring 24 cm in craniocaudal dimension. CT chest without contrast done showed no acute inflammatory abnormality. The patient had percutaneous CT-guided drainage done by Dr. Mack, interventional radiologist on 08/08/2019 with placement of 2 drains. A PICC line was placed on 08/12/2019. I had a repeat abdominal and pelvic CAT scan done on 08/14/2019, which showed decreasing size of the percutaneously draining liver abscesses. New moderate right-sided loculated pleural effusion with right basilar atelectasis was noted, which was new, when compared to prior CAT scan. The patient had thoracentesis for the loculated pleural effusion on 08/14/2019 with removal of turbid yellow fluid done by Dr. Adams. He had thoracoscopy with total lung decortication on the right side done by Dr. Ratliff on 08/14/2019, with placement of a chest tube. He had 300 mL of thin yellow fluid with multiple gelatinous accumulations removed at the same setting. Pleural fluid cytology has not revealed any malignant cells. Liver abscess culture is growing fusobacterium species from both the abscesses. Beta lactamase was negative on the Fusobacterium species. Culture is in progress. Blood cultures x2, no growth. Pleural fluid AFB was negative. Pleural fluid cultures x2 showed no growth. Had a white count of 27,000 on the day of admission. His white count was 16 on the 18th of this month. H and H 7.5 and 23, platelet count 782, MCV 85. BUN and creatinine 20 and 0.6 on the 18th. Sodium levels were 129, AST 92, ALT 79, alkaline phosphatase 275, total bilirubin 0.7 on the day of admission. Albumin was 3.0 on the day of admission. B12 levels were 874, folic acid 16, ferritin was 3005. Serum iron was 12. Pleural fluid pH was 7.2. Had 87 wbc's, 9877 rbc's with 83% segments. Pleural fluid LDH was 899. Pleural glucose was 20. Pleural amylase was 30. Total protein on the pleural fluid was 2.2. Entamoeba histolytica antibody was negative. TB QuantiFERON test was negative. DISCHARGE MEDICATIONS: 1. Meropenem 1 g IV three times daily for a total of 5-1/2 weeks. 2. Thiamine 100 mg p.o. daily. 3. Lasix 40 mg p.o. daily. 4. Folic acid 1 mg p.o. daily. 5. Albuterol inhaler 2 puffs q.6 hourly p.r.n. 6. Tylenol No.3 q.8 hourly p.r.n. one tab. 7. Ultram 50 mg twice daily p.r.n. 8. Potassium 99 mg p.o. daily. 9. Multivitamin one tablet once daily. 10. Meloxicam 15 mg daily. 11. Lisinopril with hydrochlorothiazide 20/25 mg daily. 12. Flexeril 10 mg 3 times daily p.r.n. ALLERGIES: NO KNOWN DRUG ALLERGIES. INPATIENT CONSULT: Dr. Mahoney for Infectious Disease. Dr. Adams for Pulmonology and Critical Care. Dr. Ratliff for Cardiothoracic Surgery. DISCHARGE PLAN: The patient to follow up with Gabi Doherty PA-C, his primary care physician in 1 week, and Dr. Mahoney in 1 week. BRIEF COURSE DURING HOSPITALIZATION: The patient initially came to ER on the with complaints of fever, chills, headache, and weakness for the last 3 months off and on. He had mild right upper quadrant discomfort as well. He had a CAT scan done in the outpatient setting after seeing Dr. Squires, which showed 2 large liver abscesses. He has had consultation with Interventional Radiology, and has had percutaneous drainage placed for both the abscesses. He was initially admitted to [facility] due to sepsis and 2 large abscesses in his liver. The percutaneous drain revealed purulent foul-smelling pus. His cultures grew Fusobacterium species. The patient was an alcoholic as well prior to arrival. He has had consultation with Dr. Mahoney for Infectious Disease, Dr. Adams for Pulmonology and Critical Care. The patient was later downgraded to Med-Surg floor. His repeat CAT scan done on the showed loculated pleural effusion on the right side. Thoracentesis was initially attempted, which showed a pH of 7.2. He has had Cardiothoracic surgical consultation with Dr. Ratliff and has had decortication done on the right side with placement of chest tube. This was removed on the . He is ambulating and eating well prior to discharge. He is on meropenem 1 g q.8 hours hourly under the direction of Dr. Mahoney. He needs to continue this for a total of 5-1/2 weeks. He will be later transitioned to Flagyl according to Dr. Mahoney' plan. He currently has 2 percutaneous drainage catheters for his liver abscesses. He is taught how to flush them. There is still draining around 20 to 40 mL purulent material still from the drainage tubes. He was educated and counseled regarding care of these 2 tubes prior to discharge. His was also educated and counseled regarding the same. He says he can manage the 2 tubes and is wanting to go home. Outpatient antibiotics have been arranged through Dr. Mahoney' office. He will have weekly CAT scans to see the progress of his abscess, and a decision will be made to remove the catheters based on the progress seen on the CAT scans. Please note, I have seen and examined the patient on the day of discharge. He is cleared for discharge by Dr. Mahoney. Job ID: [id number]
== END 2019-08-19 12:30 | disposition home or self-care (01) | DRG 853 ==
LOC: ERS 09:25 → IMCU/EMU 11:25 → T4-A 08-09 19:08 → SURG A 08-14 19:08 → IMCU/EMU 08-14 20:50 → SURG A 08-15 10:40
PROVIDERS: ADMIT Internal Medicine; ATTEND Internal Medicine
PROC: 02HV33Z Insertion of Infusion Device into Superior Vena Cava, Percutaneous Approach (ICD-10-PCS; principal; 2019-08-08)
PROC: 0F903ZZ Drainage of Liver, Percutaneous Approach (ICD-10-PCS; 2019-08-08)
PROC: 0BCK4ZZ Extirpation of Matter from Right Lung, Percutaneous Endoscopic Approach (ICD-10-PCS; 2019-08-14)
PROC: 0W993ZZ Drainage of Right Pleural Cavity, Percutaneous Approach (ICD-10-PCS; 2019-08-14)
DX: A41.9 Sepsis, unspecified organism (principal); K75.0 Abscess of liver; J86.9 Pyothorax without fistula; J90 Pleural effusion, not elsewhere classified; E44.0 Moderate protein-calorie malnutrition; E22.2 Syndrome of inappropriate secretion of antidiuretic hormone; R65.20 Severe sepsis without septic shock; B96.89 Other specified bacterial agents as the cause of diseases classified elsewhere; I10 Essential (primary) hypertension; F10.10 Alcohol abuse, uncomplicated; D63.8 Anemia in other chronic diseases classified elsewhere; F17.290 Nicotine dependence, other tobacco product, uncomplicated; Z68.28 Body mass index [BMI] 28.0-28.9, adult
CPT/HCPCS: 36415; 36430; 36569; 47010; 70450; 71045; 71250; 74177; 77002; 80048; 80053; 80202; 82150; 82607; 82728; 82746; 82945; 83540; 83550; 83605; 83615; 83690; 83930; 83935; 83986; 84157; 84300; 84478; 85025; 85060; 85610; 85730; 86480; 86753; 86850; 86900; 86901; 87040; 87070; 87076; 87086; 87116; 87205; 87206; 87337; 88112; 88305; 89051; 94640; 96361; 96365; 96367; C1729; C1751; J1100; J1170; J1644; J1650; J1885; J1940; J2001; J2060; J2185; J2250; J2270; J2370; J2405; J2704; J3010; J3370; J3411; J3490; J7042; J7050; J7620; P9016; Q9967; S0020

== ENCOUNTER 2019-08-27 12:47 | Outpatient (CLI) | payer OTHER ==
--- NOTE | 2019-08-27 15:07 | CT ---
CT abdomen with contrast: DATE: 08/27/2019 HISTORY: 59-year-old male with liver abscesses with drainage catheters. Follow-up. COMPARISON: 08/14/2019 FINDINGS: The very irregularly-shaped abscess straddling the left and right lobes of liver, occupying hepatic s egments 8 and 4A, previously measuring approximately 12 x 6.5 x 6.5 cm, currently measures approximately 9.5 x 5.5 x 4.5 cm. It still contains several small foci of gas. The pigtail drainage c atheter at its anterior aspect remains. The other abscess located posteriorly in the right lobe of the liver in hepatic segment 7 previously measured approximately 4.5 x 5 x 5.5 cm. It currently measures approximately 3 x 2.5 x 3 cm. The pigtail drainage catheter remains in position. Borderline splenomegaly. Atherosclerosis without aneurysm of infrarenal abdominal aorta. Essentially normal bilateral kidneys, right adrenal, and pancreas. Multiple mildly enlarged retroperitoneal, mesenteric, and jose hepatis lymph nodes, are unchanged. The previously demonstrated large, loculated right pleural effusion with pleural thickening, is signi ficantly smaller. It still has a loculated component and thickening of the visceral and parietal pleura, at the posterior right medial lung base. Nonspecific pulmonary parenchymal changes in the rig ht lower lobe adjacent to this. IMPRESSION: 1. Interval decreases in size as of the 2 intrahepatic abscesses. If there has been no recent signifi cant drainage output from the catheter's, then fluoroscopically guided drainage tube exchanges should be scheduled. (Tube checks and exchange). Removal of drainage catheters is not recommended. 2. Significant interval decrease in size of right empyema.
== END 2019-08-27 12:48 | disposition home or self-care (01) ==
LOC: SCSCT 12:47
PROVIDERS: ATTEND Internal Medicine Infectious Disease
DX: K75.0 Abscess of liver (principal); J86.9 Pyothorax without fistula
CPT/HCPCS: 74160

== ENCOUNTER 2019-09-08 13:40 | Outpatient (CLI) | payer OTHER ==
--- NOTE | 2019-09-08 14:32 | RAD ---
CHEST 2 VIEWS: Date: 09/08/2019 HISTORY: Empyema of lung. COMPARISON: 08/17/2019. FINDINGS: There is improved pleural and parenchymal opacity changes in the right mid and lower chest when sky red to the prior study. Left PICC line in place. Heart size is normal. The left lung is clear. IMPRESSION: Minimal persistent pleural and parenchymal opacity changes in the right mid and lower chest with some right costophrenic angle blunting and hemidiaphragm elevation, but showing improvement from prior study. POS: OFF
[2019-09-08 15:12] VITALS: BMI 28.3
[2019-09-09] MEDS ORDERED: FLU VACC QS2019-20(6MOS UP)/PF 60 MCG/0.5 ML SYRINGE IM ONE (15:30)
== END 2019-09-08 13:41 | disposition home or self-care (01) ==
LOC: RAD 13:40
PROVIDERS: ATTEND Thoracic Surgery (Cardiothoracic Vascular Surgery)
DX: J86.9 Pyothorax without fistula (principal); R91.8 Other nonspecific abnormal finding of lung field
CPT/HCPCS: 71046

== ENCOUNTER 2019-09-09 08:50 | Day surgery (SDC) | payer OTHER ==
[2019-09-09] MEDS ORDERED: Sodium Chloride 0.9% 10 ML ONE (09:17)
--- NOTE | 2019-09-09 09:50 | CT ---
CT Abdomen Pelvis W Con: 09/09/2019 12:00 AM CLINICAL INFORMATION: Hepatic abscesses COMPARISON: 08/14/2019 TECHNIQUE: Multiple contiguous axial images were obtained and a CT of the abdomen and pelvis with IV contrast. C oronal and sagittal reformats were performed. FINDINGS: Lower Chest: There is a tiny loculated right pleural effusion with adjacent atelectasis. This effusio n is smaller than on the prior exam. Abdomen: Liver: A drain is seen extending into the anterior portion of the liver. There is a multiloculated fl uid collection with surrounding edema measuring 5.5 cm in greatest dimension. This is smaller than on the prior examination. There is an area of phlegmon in the right liver. A pigtail drain is seen in the center of this phlegmon. This measures approximately 3.5 cm in greatest dimension. Bile Ducts: Normal caliber. Gallbladder: No calcified gallstones. Normal caliber wall. Pancreas: within normal limits. Spleen: within normal limits. Adrenals: within normal limits. Kidneys: within normal limits. Pelvis: Reproductive Organs: No pelvic masses. Ureters: within normal limits. Bladder: within normal limits. Peritoneum: No ascites or free air, no fluid collection. Bowel: Normal caliber. Scattered diverticula in the colon. Mesentery and Retroperitoneum: No enlarged mesenteric or retroperitoneal lymph nodes. Vessels: Atherosclerotic calcifications. Abdominal Wall: within normal limits. Bones: Degenerative changes in the spine. IMPRESSION: 1. Decreased size of hepatic abscesses 2. Small loculated right pleural effusion with adjacent atelectasis 3. Diverticulosis
--- NOTE | 2019-09-09 12:16 | SPC ---
EXAM: Abscess drainage catheter evaluation and replacement of anterior left hepatic lobe drainage catheter with removal of posterior right hepatic lobe drainage catheter PROVIDED CLINICAL HISTORY: Patient with hepatic abscess collections with improvement in size of the collections, the collections persist especially in the left hepatic lobe. Drainage catheter evaluation and possible replacement were requested. COMPARISON: CT abdomen on 09/09/2019 TECHNIQUE: The procedure including the risks and complications were explained to the patient, and informed conse nt was obtained. The drainage catheter in the epigastric region and surrounding area were meticulously prepped and draped in the usual sterile fashion. Contrast injection confirms contrast wi thin a collection in the left hepatic lobe. Skin and subcutaneous tissues adjacent to the drainage catheter were infiltrated with buffered 1% lidocaine for local anesthesia. The drainage catheter was cut and exchanged over a 0.035 inch Amplatz guidewire for a new 8 [place] drainage catheter. Manipulation of the drainage catheter into the more central aspect of the collection was unsuccessful . The catheter was flushed and placed to gravity drainage. Contrast injection of the drainage catheter in the in the posterior segment right hepatic lobe was in jected with contrast, but contrast was only seen adjacent to the cope loop portion of the drainage catheter with contrast extending along the course of the catheter. Contrast did not fill a collection . CT examination demonstrated a residual small collection just superior to this region, but the catheter was unable to be manipulated into a different position. As result, the catheter was removed. Dry sterile dressing was placed. Patient tolerated the procedure well and without immediate complication. Patient was transported to [facility] area for further monitoring prior to discharge. IMPRESSION: 1. Persistent left hepatic lobe collection with successful replacement of 8 B[place]udian cope loop all-purp ose drainage catheter. 2. No discernible collection was seen upon injection of the catheter in the posterior segment right h epatic lobe collection. As a result, the catheter was removed.
[2019-09-09] MEDS ORDERED: Iopamidol 300 61% 50 ML VIAL FS ONE (14:23)
[2019-09-09 15:18] VITALS: BP 121/80; TEMP 98.1
--- NOTE | 2019-09-10 14:38 | SPC ---
EXAM: Abscess drainage catheter evaluation and replacement of anterior left hepatic lobe drainage catheter with removal of posterior right hepatic lobe drainage catheter PROVIDED CLINICAL HISTORY: Patient with hepatic abscess collections with improvement in size of the collections, the collections persist especially in the left hepatic lobe. Drainage catheter evaluation and possible replacement were requested. COMPARISON: CT abdomen on 09/09/2019 TECHNIQUE: The procedure including the risks and complications were explained to the patient, and informed conse nt was obtained. The drainage catheter in the epigastric region and surrounding area were meticulously prepped and draped in the usual sterile fashion. Contrast injection confirms contrast wi thin a collection in the left hepatic lobe. Skin and subcutaneous tissues adjacent to the drainage catheter were infiltrated with buffered 1% lidocaine for local anesthesia. The drainage catheter was cut and exchanged over a 0.035 inch Amplatz guidewire for a new 8 Albanian drainage catheter. Manipulation of the drainage catheter into the more central aspect of the collection was unsuccessful . The catheter was flushed and placed to gravity drainage. Contrast injection of the drainage catheter in the in the posterior segment right hepatic lobe was in jected with contrast, but contrast was only seen adjacent to the cope loop portion of the drainage catheter with contrast extending along the course of the catheter. Contrast did not fill a collection . CT examination demonstrated a residual small collection just superior to this region, but the catheter was unable to be manipulated into a different position. As result, the catheter was removed. Dry sterile dressing was placed. Patient tolerated the procedure well and without immediate complication. Patient was transported to [facility] area for further monitoring prior to discharge. IMPRESSION: 1. Persistent left hepatic lobe collection with successful replacement of 8 Albanian cope loop all-purp ose drainage catheter. 2. No discernible collection was seen upon injection of the catheter in the posterior segment right h epatic lobe collection. As a result, the catheter was removed. Transcribed Date/Time: 09/10/2019 2:38 PM
== END 2019-09-09 12:00 | disposition home or self-care (01) ==
LOC: SPEC 08:50
PROVIDERS: ATTEND Internal Medicine Infectious Disease
PROC: 0FPB3DZ Removal of Intraluminal Device from Hepatobiliary Duct, Percutaneous Approach (ICD-10-PCS; principal; 2019-09-09)
PROC: 0F7 Hepatobiliary System and Pancreas, Dilation (ICD-10-PCS; principal; 2019-09-09)
DX: K75.0 Abscess of liver (principal); I10 Essential (primary) hypertension; D64.9 Anemia, unspecified; F17.210 Nicotine dependence, cigarettes, uncomplicated
CPT/HCPCS: 47010; 47531; 74177; 75984; C1729; Q9967

== ENCOUNTER 2019-09-22 09:18 | Outpatient (CLI) | payer OTHER ==
--- NOTE | 2019-09-22 10:45 | CT ---
CT abdomen with contrast: DATE: 09/22/2019 HISTORY: Follow-up intrahepatic abscesses in 59-year-old male. COMPARISON: 09/09/2019 FINDINGS: The loculated pleural fluid collection surrounded by thickened pleural wall with adjacent subsegmenta l atelectasis or scarring in the posterior base of the right lower lobe, previously measured approximately 4.7 x 1.7 cm on axial images. It currently measures 3.8 x 1.2 cm on axial images. (Cran iocaudal extent is unknown because the superior portion of this collection is excluded from the images.) The more anterior of the 2 hepatic abscesses, straddling hepatic segments 8 of the right lobe and 4A of the left lobe, has shrunk from previous dimensions of approximately 5.5 x 3.5 x 3 cm, to current dimensions of approximately 4 x 2.5 x 2 cm. It is surrounded by a halo of edema or phlegmonous tissue . The previously seen percutaneous drainage catheter has been replaced with a new one. The new drainage catheter pigtail loop is still in the anterior edge of the fluid collection. The patient sta patric that there is very little output from this catheter. The low-attenuation area located more posteriorly in the right lobe of the liver in hepatic segment 7 has not significantly changed in dimensions. It may represent edematous, phlegmonous tissue. The catheter from that collection has been removed. The previously demonstrated small focus of gas within the collection has resolved. There are no new fluid collections. IMPRESSION: 1. The more anteriorly located hepatic abscess cavity has shrunk, but not resolved. There is minimal output from the existing drainage catheter. Recommend follow-up CT abdomen with contrast in about one week, with possible fluoroscopically guided catheter manipulation and exchange in special procedu res on the same day. 2. Interval removal of the drainage catheter from the more posteriorly located right hepatic lesion. Residual phlegmon in that location without definite abscess cavity identified. 3. Interval shrinkage but not resolution of the loculated right posterior basilar pleural fluid colle ction which could be an empyema responding to antibiotic therapy.
[2019-09-22] MEDS ORDERED: Iopamidol 370 76% 100 ML VIAL ONE (10:59)
== END 2019-09-22 09:19 | disposition home or self-care (01) ==
LOC: CT 09:18
PROVIDERS: ATTEND Internal Medicine Infectious Disease
DX: K75.0 Abscess of liver (principal)
CPT/HCPCS: 74160; Q9967

== ENCOUNTER 2019-09-30 08:35 | Day surgery (SDC) | payer OTHER ==
[2019-09-29 10:59] VITALS: BMI 28.3
[2019-09-30] MEDS ORDERED: FLU VACC QS2019-20(6MOS UP)/PF 60 MCG/0.5 ML SYRINGE IM ONE (09:00)
--- NOTE | 2019-09-30 09:27 | CT ---
CT ABDOMEN WITH IV CONTRAST: INDICATION: Reevaluate liver abscess. COMPARISON: Prior exam dated September 22, 2019. FINDINGS: The loculated right-sided pleural effusion has decreased in size, now measuring 3.1 cm greatest axial dimension, where it previously measured 4.5 cm. Right basilar subsegmental atelectasis is stable appearing. Enlarged left-sided periaortic lymph nodes are slightly smaller. The largest seen on image 10 of seri es 2 measures 1.4 cm, where it previously measured up to 1.6 cm. The percutaneous drain projecting into the region of the right hepatic lobe is unchanged in position. The adjacent abscess within the right hepatic lobe on image 10 of series 2 measures 2.6 x 2.1 cm, where it previously measured 4.0 x 4.5 cm. Area of residual phlegmon within the peripheral right hepa tic lobe on image 12 of series 2 now measures 3 cm, where it previously measured 3.4 cm. Mildly enlarged lymph nodes of the upper abdomen are are relatively stable appearing. Adrenal glands, kidneys and spleen appear unchanged. There are moderate vascular calcifications. Visualized unopacified large and small bowel are unremarkable appearing. IMPRESSION: 1. Continued decrease in size of the segment 5 right hepatic lobe abscess with percutaneous drain. 2. Decrease in size of the area of phlegmon within the peripheral right hepatic lobe. 3. Decrease in size of the loculated right-sided pleural effusion. 4. Improvement in the lymphadenopathy of the left periaortic region. 5. Continued CT follow-up is recommended. Follow-up CT of the abdomen with contrast in 1-2 weeks is r ecommended. 6. Findings were called to Dr. Mahoney at 9:40 AM. Transcribed Date/Time: 09/30/2019 9:40 AM
[2019-09-30 10:16] VITALS: BP 139/80; TEMP 98.3
[2019-09-30] MEDS ORDERED: Iopamidol 370 76% 100 ML VIAL ONE (13:55)
== END 2019-09-30 09:30 | disposition home or self-care (01) ==
LOC: CT 08:35
PROVIDERS: ATTEND Internal Medicine Infectious Disease
PROC: 0F2 Hepatobiliary System and Pancreas, Change (ICD-10-PCS; principal; 2019-09-30)
DX: K75.0 Abscess of liver (principal); I10 Essential (primary) hypertension; D64.9 Anemia, unspecified; F17.290 Nicotine dependence, other tobacco product, uncomplicated
CPT/HCPCS: 74160; J1642; Q9967

== ENCOUNTER 2019-10-06 08:32 | Outpatient (CLI) | payer OTHER ==
--- NOTE | 2019-10-06 11:30 | SPC ---
Fluoroscopic guided abscess check and catheter removal HISTORY: Liver abscess. Drain in place for 2 months with minimal residual output. FINDINGS: Sterile technique was used to carefully inject a small amount of radiopaque contrast throug h the upper abdomen percutaneous drainage catheter. Most contrast extended from the end of the catheter into a completely decompressed liver cavity. A small amount of contrast was seen within the tissues superficial to the liver, likely tracking along the side of the catheter. The catheter and area around it within carefully prepped and draped. Sterile technique was used to li gate the catheter and retention suture. A 0.035 Amplatz wire was carefully inserted to uncoil the inner portion of the catheter. Catheter was carefully removed over the wire. Wire was removed. Patien t tolerated the procedure well and was dismissed in good condition. IMPRESSION: Interval resolution of the large liver abscess. Successful removal of the drainage cathet er.
[2019-10-06] MEDS ORDERED: Iopamidol 300 61% 50 ML VIAL FS ONE (15:06)
== END 2019-10-06 08:33 | disposition home or self-care (01) ==
LOC: RAD 08:32
PROVIDERS: ATTEND Internal Medicine Infectious Disease
DX: K75.0 Abscess of liver (principal)
CPT/HCPCS: 47537; 49424; Q9967

== ENCOUNTER 2022-03-09 11:13 | Outpatient (CLI) | payer OTHER | END 2022-03-09 11:14 | disposition home or self-care (01) | LOC: LABBT 11:13 | PROVIDERS: ATTEND Internal Medicine Gastroenterology | DX: Z12.11 Encounter for screening for malignant neoplasm of colon (principal); Z20.822 Contact with and (suspected) exposure to COVID-19 | CPT/HCPCS: 87811 ==

== ENCOUNTER 2022-03-14 07:19 | Day surgery (SDC) | payer OTHER ==
[2022-03-13 09:56] VITALS: BMI 28.4
[2022-03-14] MEDS ORDERED: Lidocaine 1% MPF 2 ML VIAL ONE (09:32)
[2022-03-14] MEDS ORDERED: PROPOFOL 200 MG/20 ML VIAL ONE (10:24)
[2022-03-14] MEDS ORDERED: Lidocaine 1% PF 5 ML VIAL ONE (10:24)
== END 2022-03-14 12:00 | disposition home or self-care (01) ==
LOC: SDC 07:19
PROVIDERS: ATTEND Internal Medicine Gastroenterology
PROC: 0DBN8ZX Excision of Sigmoid Colon, Via Natural or Artificial Opening Endoscopic, Diagnostic (ICD-10-PCS; principal; 2022-03-14)
DX: K57.32 Diverticulitis of large intestine without perforation or abscess without bleeding (principal); K63.89 Other specified diseases of intestine; K64.9 Unspecified hemorrhoids; R19.5 Other fecal abnormalities; I10 Essential (primary) hypertension; M19.90 Unspecified osteoarthritis, unspecified site; Z79.899 Other long term (current) drug therapy
CPT/HCPCS: 88305; J2704

== ENCOUNTER 2022-03-28 08:42 | Outpatient (CLI) | payer OTHER | END 2022-03-28 08:43 | disposition home or self-care (01) | LOC: RAD 08:42 | PROVIDERS: ATTEND Registered Nurse Community Health | DX: R20.0 Anesthesia of skin (principal); M19.041 Primary osteoarthritis, right hand ==

== ENCOUNTER 2022-06-29 07:51 | Outpatient (CLI) | payer OTHER | END 2022-06-29 07:52 | disposition home or self-care (01) | LOC: BICRAD 07:51 | PROVIDERS: ATTEND Registered Nurse Hospice | DX: M79.671 Pain in right foot (principal); M79.672 Pain in left foot; M19.071 Primary osteoarthritis, right ankle and foot; M19.072 Primary osteoarthritis, left ankle and foot; M21.42 Flat foot [pes planus] (acquired), left foot ==

== ENCOUNTER 2022-09-14 09:13 | Outpatient (CLI) | payer OTHER | END 2022-09-14 09:14 | disposition home or self-care (01) | LOC: BICRAD 09:13 | PROVIDERS: ATTEND Registered Nurse Hospice | DX: M54.50 Low back pain, unspecified (principal); M25.511 Pain in right shoulder; G89.29 Other chronic pain; M19.011 Primary osteoarthritis, right shoulder; M47.816 Spondylosis without myelopathy or radiculopathy, lumbar region; M51.36 Other intervertebral disc degeneration, lumbar region; M89.38 Hypertrophy of bone, other site | CPT/HCPCS: 72100 ==

== ENCOUNTER 2022-10-15 16:17 | Inpatient (IN) | payer OTHER ==
[2022-10-15 17:19] LABS: Hemoglobin 12.4 g/dL (14.0-18.0); Mean Corpuscular HGB CONC 34.2 g/dL (32.0-36.0); Mean Corpuscular Hemoglobin 32.5 pg (27.0-31.0); Mean Platelet Volume 5.9 fL (7.4-10.4); Platelet Count 365 10x3/uL (130-400); RBC Distribution Width 12.6 % (11.5-14.5); Red Blood Cell (RBC) Count 3.81 mill/uL (4.70-6.10); White Blood Cell (WBC) Count 21.1 10x3/uL (4.8-10.8)
[2022-10-15 17:32] LABS: Band 2 % (5-11); Lymphocytes 30 % (21-51); MDiff Complete? YES; Monocytes 7 % (0-10); Neutrophil 61 % (42-75)
[2022-10-15 17:38] LABS: ALT (SGPT) 21 U/L (8-55); AST (SGOT) 12 U/L (5-34); Albumin 3.9 g/dL (3.5-5.0); Alkaline Phosphatase 93 U/L (40-110); Anion Gap 15 mmol/L (10-20); BUN (Urea Nitrogen) 16 mg/dL (8.4-25.7); Bilirubin, Total 0.4 mg/dL (0.2-1.2); Calc. Creatinine Clearance 0 mL/min (70-130); Calcium 10.1 mg/dL (7.8-10.44); Carbon Dioxide 30 mmol/L (22-29); Chloride 88 mmol/L (98-107); Estimated GFR 73; Globulin 3.4 g/dL (2.4-3.5); Glucose 106 mg/dL (70-105); Potassium 4.2 mmol/L (3.5-5.1); Protein, Total 7.3 g/dL (6.0-8.3); Sodium 129 mmol/L (136-145)
[2022-10-15] MEDS ORDERED: Morphine 4 MG/ML VIAL ONE (18:19)
[2022-10-15] MEDS ORDERED: Ketorolac Tromethamine 30 MG/ML VIAL ONE (18:19)
[2022-10-15] MEDS ORDERED: CEFAZOLIN 1 GM VIAL ONE (18:19)
[2022-10-15 18:43] LABS: Acetaminophen Less than 10.0 mcg/mL (10.0-30.0); Alcohol Less than 10 mg/dL (Less than 10); CRP (Inflammatory) 29.75 mg/dL (= or < 0.5); Salicylate Less than 8.0 mg/dL (15.0-30.0); Uric Acid 4.6 mg/dL (3.5-7.2)
[2022-10-15] MEDS ORDERED: Vancomycin 1 GM/200 ML (FROZEN) BAG ONE (19:07)
[2022-10-15] MEDS ORDERED: Acetaminophen 650 MG Suppository PR PRN (21:32)
[2022-10-15] MEDS ORDERED: Ondansetron PF 4 MG/2 ML Vial IVP PRN (21:32)
[2022-10-15] MEDS ORDERED: Ondansetron ODT 4 MG TAB PO PRN (21:32)
[2022-10-15] MEDS ORDERED: cefTRIAXone\\ROCEPHIN 1 GM in Sodium Chloride 0.9% 100 ML IVPB SCH (22:00)
[2022-10-15 22:23] VITALS: BMI 27.9
[2022-10-16] MEDS: Sodium Chloride 0.9% 1,000 ML IV SCH ×2 (03:38→14:33)
[2022-10-16] MEDS: Ketorolac Tromethamine 30 MG/ML VIAL IVP PRN ×3 (03:38→15:29)
[2022-10-16 07:13] LABS: Anion Gap 13 mmol/L (10-20); BUN (Urea Nitrogen) 14 mg/dL (8.4-25.7); Calc. Creatinine Clearance 124 mL/min (70-130); Calcium 9.1 mg/dL (7.8-10.44); Carbon Dioxide 26 mmol/L (22-29); Chloride 92 mmol/L (98-107); Estimated GFR 102; Glucose 115 mg/dL (70-105); Potassium 3.6 mmol/L (3.5-5.1); Sodium 127 mmol/L (136-145)
[2022-10-16 07:18] LABS: Hemoglobin 10.6 g/dL (14.0-18.0); Mean Corpuscular HGB CONC 34.2 g/dL (32.0-36.0); Mean Corpuscular Hemoglobin 32.6 pg (27.0-31.0); Mean Corpuscular Volume 95.2 fl (78.0-98.0); Mean Platelet Volume 5.8 fL (7.4-10.4); Platelet Count 340 10x3/uL (130-400); RBC Distribution Width 12.4 % (11.5-14.5); Red Blood Cell (RBC) Count 3.26 mill/uL (4.70-6.10); White Blood Cell (WBC) Count 16.9 10x3/uL (4.8-10.8)
[2022-10-16 07:46] LABS: Band 1 % (5-11); Lymphocytes 46 % (21-51); MDiff Complete? YES; Monocytes 5 % (0-10); Neutrophil 48 % (42-75)
[2022-10-16] MEDS: Acetaminophen 325 MG TAB PO PRN ×3 (09:41→20:30)
[2022-10-16] MEDS: Tamsulosin HCl 0.4 MG CAP PO SCH (09:41)
[2022-10-16] MEDS: Cyclobenzaprine 10 MG TAB PO PRN ×2 (09:53→15:29)
[2022-10-16] MEDS: cefTRIAXone\\ROCEPHIN 2 GM in Sodium Chloride 0.9% 100 ML IVPB SCH ×2 (11:05→21:33)
[2022-10-16] MEDS ORDERED: Iopamidol-370 76% 500 ML MDV (1 ML CHARGE) ONE (13:09)
[2022-10-16] MEDS ORDERED: CEFAZOLIN 2 GM in Sodium Chloride 0.9% 100 ML IVPB SCH (13:30)
[2022-10-16] MEDS ORDERED: Morphine 2 MG/ML VIAL SLOW IVP SCH (20:45)
[2022-10-16] MEDS ORDERED: tiZANidine HCl 4 MG TAB PO SCH (21:15)
[2022-10-17] MEDS: Sodium Chloride 0.9% 1,000 ML IV SCH (01:34)
[2022-10-17] MEDS: Ketorolac Tromethamine 30 MG/ML VIAL IVP PRN (01:41)
[2022-10-17] MEDS: tiZANidine HCl 4 MG TAB PO SCH ×2 (04:40→08:28)
[2022-10-17] MEDS: Tamsulosin HCl 0.4 MG CAP PO SCH (08:29)
[2022-10-17] MEDS: cefTRIAXone\\ROCEPHIN 2 GM in Sodium Chloride 0.9% 100 ML IVPB SCH ×2 (10:59→22:38)
[2022-10-17] MEDS: Morphine 2 MG/ML VIAL SLOW IVP PRN (11:24)
[2022-10-17] MEDS: Cyclobenzaprine 10 MG TAB PO PRN (12:34)
[2022-10-17] MEDS ORDERED: FENTANYL 50 MCG/ML 1 ML VIAL ONE ×2 (15:07→18:55)
[2022-10-17] MEDS ORDERED: HYDROmorphone 0.5 MG/0.5 ML SYRINGE ONE (17:16)
[2022-10-17] MEDS ORDERED: fentaNYL PF 100 MCG/2 ML SYRINGE ONE (17:16)
[2022-10-17] MEDS ORDERED: Sodium Chloride 0.9% 100 ML ONE (17:35)
[2022-10-17] MEDS ORDERED: CEFAZOLIN 2 GM VIAL ONE (17:35)
[2022-10-17] MEDS ORDERED: PROPOFOL 200 MG/20 ML VIAL ONE (17:45)
[2022-10-17] MEDS ORDERED: Lidocaine 1% PF 5 ML VIAL ONE (17:45)
[2022-10-17] MEDS ORDERED: Dexamethasone 20 MG/5 ML VIAL ONE (17:45)
[2022-10-17] MEDS ORDERED: Ondansetron PF 4 MG/2 ML Vial ONE (17:45)
[2022-10-17] MEDS ORDERED: Ketorolac Tromethamine 30 MG/ML VIAL ONE (17:45)
[2022-10-17] MEDS ORDERED: Ondansetron HCl/PF 4 MG/2 ML Vial IVP PRN (18:43)
[2022-10-17] MEDS ORDERED: HYDROmorphone 2 MG/ML VIAL SLOW IVP PRN (18:43)
[2022-10-17] MEDS ORDERED: Promethazine HCl 25 MG/ML VIAL IM PRN (18:43)
[2022-10-17] MEDS ORDERED: PACU-Morphine 4MG/ML VIAL SLOW IVP PRN (18:43)
[2022-10-17] MEDS: VANCOMYCIN 1.25 GM/250 ML BAG 1.25 GM in Premix Bag 1 BAG IVPB SCH (20:14)
[2022-10-17] MEDS: Lisinopril 5 MG TAB PO SCH (21:18)
[2022-10-18] MEDS: Tamsulosin HCl 0.4 MG CAP PO SCH (08:31)
[2022-10-18] MEDS: Metoprolol Tartrate 25 MG TAB PO SCH ×2 (08:31→19:34)
[2022-10-18] MEDS: Lisinopril 5 MG TAB PO SCH ×2 (08:31→19:34)
[2022-10-18] MEDS: VANCOMYCIN 1.25 GM/250 ML BAG 1.25 GM in Premix Bag 1 BAG IVPB SCH ×2 (09:07→19:34)
[2022-10-18] MEDS: Morphine 2 MG/ML VIAL SLOW IVP PRN ×2 (10:41→22:03)
[2022-10-18] MEDS: cefTRIAXone\\ROCEPHIN 2 GM in Sodium Chloride 0.9% 100 ML IVPB SCH ×2 (10:44→22:03)
[2022-10-18] MEDS: Cyclobenzaprine 10 MG TAB PO PRN (12:03)
[2022-10-18] MEDS: Acetaminophen 325 MG TAB PO PRN (16:32)
[2022-10-19] MEDS: Morphine 2 MG/ML VIAL SLOW IVP PRN ×3 (04:14→17:01)
[2022-10-19 07:35] LABS: Vancomycin, Trough 12.7 ug/mL
[2022-10-19] MEDS: Cyclobenzaprine 10 MG TAB PO PRN ×2 (08:50→18:21)
[2022-10-19] MEDS: Acetaminophen 325 MG TAB PO PRN (08:50)
[2022-10-19] MEDS: Tamsulosin HCl 0.4 MG CAP PO SCH (08:50)
[2022-10-19] MEDS: Lisinopril 5 MG TAB PO SCH ×2 (08:50→20:25)
[2022-10-19] MEDS: cefTRIAXone\\ROCEPHIN 2 GM in Sodium Chloride 0.9% 100 ML IVPB SCH (08:51)
[2022-10-19] MEDS: Metoprolol Tartrate 25 MG TAB PO SCH ×2 (09:42→19:59)
[2022-10-19] MEDS: VANCOMYCIN 1.25 GM/250 ML BAG 1.25 GM in Premix Bag 1 BAG IVPB SCH (09:42)
[2022-10-19] MEDS ORDERED: Ketorolac Tromethamine 30 MG/ML VIAL IVP SCH (18:30)
[2022-10-19] MEDS: Vancomycin 1.5 GRAM/300 ML BAG 1.5 GM in Premix Bag 1 BAG IVPB SCH (19:59)
[2022-10-19] MEDS: Cyclobenzaprine 10 MG TAB PO SCH (19:59)
[2022-10-19] MEDS: Ibuprofen 200 MG TAB PO SCH (19:59)
[2022-10-20] MEDS: Morphine 2 MG/ML VIAL SLOW IVP PRN ×2 (04:07→11:41)
[2022-10-20] MEDS: traMADol HCl 50 MG TAB PO PRN ×2 (06:20→17:09)
[2022-10-20] MEDS: Lisinopril 5 MG TAB PO SCH ×2 (08:17→20:29)
[2022-10-20] MEDS: Tamsulosin HCl 0.4 MG CAP PO SCH (08:17)
[2022-10-20] MEDS: Vancomycin 1.5 GRAM/300 ML BAG 1.5 GM in Premix Bag 1 BAG IVPB SCH ×2 (08:17→20:30)
[2022-10-20] MEDS: Metoprolol Tartrate 25 MG TAB PO SCH ×2 (08:18→20:29)
[2022-10-20] MEDS: Ibuprofen 200 MG TAB PO SCH ×3 (08:18→20:26)
[2022-10-20] MEDS: Cyclobenzaprine 10 MG TAB PO SCH ×3 (08:18→20:29)
[2022-10-20 08:33] LABS: Hemoglobin A1c 4.9 % (4.0-6.0)
[2022-10-20 08:48] LABS: Anion Gap 12 mmol/L (10-20); BUN (Urea Nitrogen) 17 mg/dL (8.4-25.7); CRP (Inflammatory) 6.95 mg/dL (= or < 0.5); Calc. Creatinine Clearance 131 mL/min (70-130); Calcium 9.2 mg/dL (7.8-10.44); Carbon Dioxide 22 mmol/L (22-29); Chloride 101 mmol/L (98-107); Estimated GFR 103; Glucose 78 mg/dL (70-105); Potassium 4.2 mmol/L (3.5-5.1); Sodium 131 mmol/L (136-145)
[2022-10-20 09:50] LABS: Hemoglobin 9.8 g/dL (14.0-18.0); Mean Corpuscular HGB CONC 33.6 g/dL (32.0-36.0); Mean Corpuscular Hemoglobin 32.8 pg (27.0-31.0); Mean Corpuscular Volume 97.6 fl (78.0-98.0); Mean Platelet Volume 5.7 fL (7.4-10.4); Platelet Count 504 10x3/uL (130-400); RBC Distribution Width 12.6 % (11.5-14.5); Red Blood Cell (RBC) Count 2.98 mill/uL (4.70-6.10); White Blood Cell (WBC) Count 16.4 10x3/uL (4.8-10.8)
[2022-10-20 11:17] LABS: Band 2 % (5-11); Lymphocytes 33 % (21-51); MDiff Complete? YES; Metamyelocyte 1 % (0-0); Monocytes 5 % (0-10); Neutrophil 59 % (42-75); Platelet Morphology Comment Appears Increased; Polychromasia SLIGHT = 2-3 cells (100X) (0-2/hpf)
[2022-10-21] MEDS: Morphine 2 MG/ML VIAL SLOW IVP PRN ×2 (04:00→11:56)
[2022-10-21 07:31] LABS: Anion Gap 13 mmol/L (10-20); BUN (Urea Nitrogen) 12 mg/dL (8.4-25.7); Calc. Creatinine Clearance 133 mL/min (70-130); Calcium 9.1 mg/dL (7.8-10.44); Carbon Dioxide 24 mmol/L (22-29); Chloride 100 mmol/L (98-107); Estimated GFR 104; Glucose 96 mg/dL (70-105); Potassium 4.3 mmol/L (3.5-5.1); Sodium 133 mmol/L (136-145); Vancomycin, Trough 20.7 ug/mL
[2022-10-21] MEDS: Vancomycin 1.5 GRAM/300 ML BAG 1.5 GM in Premix Bag 1 BAG IVPB SCH ×2 (08:04→20:24)
[2022-10-21] MEDS: Lisinopril 5 MG TAB PO SCH ×2 (08:05→20:26)
[2022-10-21] MEDS: Tamsulosin HCl 0.4 MG CAP PO SCH (08:06)
[2022-10-21] MEDS: Ibuprofen 200 MG TAB PO SCH ×3 (08:06→20:24)
[2022-10-21] MEDS: traMADol HCl 50 MG TAB PO PRN ×2 (08:07→17:41)
[2022-10-21] MEDS: Cyclobenzaprine 10 MG TAB PO SCH ×3 (08:10→20:29)
[2022-10-21] MEDS: Metoprolol Tartrate 25 MG TAB PO SCH ×2 (08:10→20:25)
[2022-10-21 08:13] LABS: Band 2 % (5-11); Hemoglobin 10.3 g/dL (14.0-18.0); Lymphocytes 34 % (21-51); MDiff Complete? YES; Mean Corpuscular HGB CONC 33.4 g/dL (32.0-36.0); Mean Corpuscular Volume 95.6 fl (78.0-98.0); Mean Platelet Volume 5.6 fL (7.4-10.4); Monocytes 6 % (0-10); Neutrophil 53 % (42-75); Platelet Count 495 10x3/uL (130-400); Platelet Morphology Comment Appears Increased; Polychromasia SLIGHT = 2-3 cells (100X) (0-2/hpf); RBC Distribution Width 12.5 % (11.5-14.5); Reactive Lymphocytes 5 % (0-10); Red Blood Cell (RBC) Count 3.22 mill/uL (4.70-6.10); White Blood Cell (WBC) Count 16.1 10x3/uL (4.8-10.8)
[2022-10-21] MEDS: HYDROcodone/Acetaminophen 5/325 mg Tablet PO PRN ×2 (13:56→18:50)
[2022-10-21] MEDS: Gabapentin 300 MG CAP PO SCH ×2 (14:31→20:25)
[2022-10-21] MEDS: Acetaminophen 325 MG TAB PO PRN (17:40)
[2022-10-22] MEDS: Morphine 2 MG/ML VIAL SLOW IVP PRN (04:17)
[2022-10-22 07:46] LABS: Anion Gap 14 mmol/L (10-20); BUN (Urea Nitrogen) 12 mg/dL (8.4-25.7); Calc. Creatinine Clearance 129 mL/min (70-130); Calcium 9.3 mg/dL (7.8-10.44); Carbon Dioxide 22 mmol/L (22-29); Chloride 100 mmol/L (98-107); Estimated GFR 103; Glucose 82 mg/dL (70-105); Potassium 4.3 mmol/L (3.5-5.1); Sodium 132 mmol/L (136-145)
[2022-10-22 08:22] LABS: Band 7 % (5-11); Eosinophils 3 % (0-10); Hemoglobin 11.2 g/dL (14.0-18.0); Lymphocytes 30 % (21-51); MDiff Complete? YES; Mean Corpuscular HGB CONC 33.5 g/dL (32.0-36.0); Mean Corpuscular Hemoglobin 32.6 pg (27.0-31.0); Mean Corpuscular Volume 97.3 fl (78.0-98.0); Mean Platelet Volume 5.7 fL (7.4-10.4); Monocytes 3 % (0-10); Neutrophil 47 % (42-75); Platelet Count 556 10x3/uL (130-400); Platelet Morphology Comment Appears Increased; RBC Distribution Width 12.7 % (11.5-14.5); RBC Morphology Normal; Reactive Lymphocytes 10 % (0-10); Red Blood Cell (RBC) Count 3.45 mill/uL (4.70-6.10); White Blood Cell (WBC) Count 17.1 10x3/uL (4.8-10.8)
[2022-10-22] MEDS: Gabapentin 300 MG CAP PO SCH ×3 (08:41→20:28)
[2022-10-22] MEDS: Ibuprofen 200 MG TAB PO SCH ×3 (08:41→20:28)
[2022-10-22] MEDS: Lisinopril 5 MG TAB PO SCH ×2 (08:41→20:28)
[2022-10-22] MEDS: Metoprolol Tartrate 25 MG TAB PO SCH ×2 (08:42→20:28)
[2022-10-22] MEDS: Vancomycin 1.5 GRAM/300 ML BAG 1.5 GM in Premix Bag 1 BAG IVPB SCH (08:42)
[2022-10-22] MEDS: Tamsulosin HCl 0.4 MG CAP PO SCH (08:42)
[2022-10-22] MEDS: Cyclobenzaprine 10 MG TAB PO SCH ×3 (08:42→20:28)
[2022-10-22] MEDS: HYDROcodone/Acetaminophen 5/325 mg Tablet PO PRN ×3 (12:55→23:38)
[2022-10-22] MEDS: Oxacillin 2 GM in Sodium Chloride 0.9% 100 ML IVPB SCH ×3 (12:55→23:24)
[2022-10-22] MEDS: traMADol HCl 50 MG TAB PO PRN (20:28)
[2022-10-23] MEDS: HYDROcodone/Acetaminophen 5/325 mg Tablet PO PRN ×3 (04:19→18:57)
[2022-10-23] MEDS: Oxacillin 2 GM in Sodium Chloride 0.9% 100 ML IVPB SCH ×3 (04:20→18:46)
[2022-10-23 05:48] LABS: Hemoglobin 10.2 g/dL (14.0-18.0); Mean Corpuscular HGB CONC 32.9 g/dL (32.0-36.0); Mean Corpuscular Volume 97.2 fl (78.0-98.0); Mean Platelet Volume 5.6 fL (7.4-10.4); Platelet Count 589 10x3/uL (130-400); RBC Distribution Width 12.5 % (11.5-14.5); Red Blood Cell (RBC) Count 3.19 mill/uL (4.70-6.10); White Blood Cell (WBC) Count 13.6 10x3/uL (4.8-10.8)
[2022-10-23 05:55] LABS: Prothrombin Time 13.7 sec (12.0-14.7)
[2022-10-23 06:46] LABS: Band 2 % (5-11); Eosinophils 1 % (0-10); Lymphocytes 45 % (21-51); MDiff Complete? YES; Monocytes 2 % (0-10); Neutrophil 50 % (42-75); Platelet Morphology Comment Appears Increased; Polychromasia SLIGHT = 2-3 cells (100X) (0-2/hpf)
[2022-10-23] MEDS: Gabapentin 300 MG CAP PO SCH ×3 (09:02→20:14)
[2022-10-23] MEDS: Lisinopril 5 MG TAB PO SCH ×2 (09:03→20:05)
[2022-10-23] MEDS: Cyclobenzaprine 10 MG TAB PO SCH ×3 (09:03→20:14)
[2022-10-23] MEDS: Tamsulosin HCl 0.4 MG CAP PO SCH (09:03)
[2022-10-23] MEDS: Ibuprofen 200 MG TAB PO SCH ×3 (09:03→20:14)
[2022-10-23] MEDS: Metoprolol Tartrate 25 MG TAB PO SCH ×2 (09:03→20:13)
[2022-10-24] MEDS: Morphine 2 MG/ML VIAL SLOW IVP PRN ×2 (00:15→06:31)
[2022-10-24] MEDS: Oxacillin 2 GM in Sodium Chloride 0.9% 100 ML IVPB SCH ×2 (00:18→07:05)
[2022-10-24] MEDS: HYDROcodone/Acetaminophen 5/325 mg Tablet PO PRN ×2 (00:38→04:43)
[2022-10-24 06:20] LABS: Hemoglobin 10.7 g/dL (14.0-18.0); Mean Corpuscular Hemoglobin 32.6 pg (27.0-31.0); Mean Platelet Volume 5.7 fL (7.4-10.4); Platelet Count 565 10x3/uL (130-400); RBC Distribution Width 12.8 % (11.5-14.5); Red Blood Cell (RBC) Count 3.26 mill/uL (4.70-6.10); White Blood Cell (WBC) Count 13.7 10x3/uL (4.8-10.8)
[2022-10-24 06:44] LABS: Eosinophils 2 % (0-10); Lymphocytes 50 % (21-51); MDiff Complete? YES; Monocytes 4 % (0-10); Neutrophil 40 % (42-75); Platelet Morphology Comment Appears Increased; Reactive Lymphocytes 4 % (0-10)
[2022-10-24] MEDS: Metoprolol Tartrate 25 MG TAB PO SCH (09:07)
[2022-10-24] MEDS: Ibuprofen 200 MG TAB PO SCH (09:07)
[2022-10-24] MEDS: Tamsulosin HCl 0.4 MG CAP PO SCH (09:07)
[2022-10-24] MEDS: Gabapentin 300 MG CAP PO SCH (09:07)
[2022-10-24] MEDS: Cyclobenzaprine 10 MG TAB PO SCH (09:07)
[2022-10-24] MEDS: Lisinopril 5 MG TAB PO SCH (09:08)
[2022-10-24 12:47] VITALS: BP 158/77; TEMP 98.1
== END 2022-10-24 13:20 | disposition home or self-care (01) | DRG 854 ==
LOC: ERS 16:17 → T4-A 19:58 → OBSVTOIN 10-16 06:58
PROVIDERS: ADMIT Student in an Organized Health Care Education/Training Program; ATTEND Family Medicine
PROC: 3E03329 Introduction of Other Anti-infective into Peripheral Vein, Percutaneous Approach (ICD-10-PCS; 2022-10-16)
PROC: 0LBS0ZZ Excision of Right Ankle Tendon, Open Approach (ICD-10-PCS; principal; 2022-10-17)
PROC: 0J9Q0ZZ Drainage of Right Foot Subcutaneous Tissue and Fascia, Open Approach (ICD-10-PCS; 2022-10-17)
DX: A41.9 Sepsis, unspecified organism (principal); E87.1 Hypo-osmolality and hyponatremia; L03.115 Cellulitis of right lower limb; L02.415 Cutaneous abscess of right lower limb; I10 Essential (primary) hypertension; Z20.822 Contact with and (suspected) exposure to COVID-19; M19.90 Unspecified osteoarthritis, unspecified site; Z79.899 Other long term (current) drug therapy; N40.0 Benign prostatic hyperplasia without lower urinary tract symptoms; F10.10 Alcohol abuse, uncomplicated; Z71.41 Alcohol abuse counseling and surveillance of alcoholic; M65.9 Synovitis and tenosynovitis, unspecified
CPT/HCPCS: 36415; 36416; 80048; 80053; 80202; 80307; 82550; 83036; 83605; 83735; 84550; 85025; 85610; 85652; 86140; 87040; 87070; 87077; 87186; 87205; 96365; 96367; 96375; 96376; 97139; G0378; J0690; J0696; J1100; J1170; J1650; J1885; J2270; J2272; J2405; J2700; J2704; J3010; J3370; J3370-JW; J3490; J7050; Q9967; U0003; U0005

== ENCOUNTER 2023-06-15 08:22 | Outpatient (CLI) | payer OTHER ==
[2023-06-15 09:37] LABS: Hematocrit 36.4 % (38.8-50.0); Hemoglobin 12.9 g/dL (13.5-17.5); Mean Corpuscular HGB CONC 35.4 g/dL (32.0-36.0); Mean Corpuscular Hemoglobin 30.7 pg (27.0-33.0); Mean Corpuscular Volume 86.7 fl (81.2-95.1); Mean Platelet Volume 8.1 fl (7.4-10.4); Platelet Count 226 10x3/uL (150-450); RBC Distribution Width 12.6 % (11.5-14.5); White Blood Cell (WBC) Count 12.6 10x3/uL (3.5-10.5)
[2023-06-15 09:57] LABS: PTT 30.9 sec (22.0-33.0); Prothrombin Time 10.3 sec (9.5-12.1)
[2023-06-15 10:01] LABS: Anion Gap 15 mmol/L (10-20); BUN (Urea Nitrogen) 24 mg/dL (8.4-25.7); Calc. Creatinine Clearance 0 mL/min (70-130); Calcium 9.4 mg/dL (7.8-10.44); Carbon Dioxide 24 mmol/L (23-31); Chloride 90 mmol/L (98-107); Estimated GFR 61; Glucose 108 mg/dL (80-115); Potassium 4.3 mmol/L (3.5-5.1); Sodium 125 mmol/L (136-145)
== END 2023-06-15 08:23 | disposition home or self-care (01) ==
LOC: LABBT 08:22
PROVIDERS: ATTEND Neurological Surgery
DX: Z01.812 Encounter for preprocedural laboratory examination (principal); M50.01 Cervical disc disorder with myelopathy, high cervical region; M50.121 Cervical disc disorder at C4-C5 level with radiculopathy; M50.122 Cervical disc disorder at C5-C6 level with radiculopathy; M50.123 Cervical disc disorder at C6-C7 level with radiculopathy
CPT/HCPCS: 80048; 85027; 85610; 85730

== ENCOUNTER 2023-06-15 08:30 | Observation (INO) | payer OTHER ==
[2023-06-19] MEDS ORDERED: Vancomycin 1 GM VIAL ONE (06:10)
[2023-06-19] MEDS ORDERED: Thrombin 5000 UNITS/5 ML VIAL ONE (06:10)
[2023-06-19] MEDS ORDERED: Lidocaine 1% PF 5 ML VIAL ONE ×2 (06:33→07:03)
[2023-06-19] MEDS ORDERED: Dexmedetomidine 200 MCG/2 ML VIAL ONE (06:33)
[2023-06-19] MEDS ORDERED: Rocuronium Bromide 10 MG/ML (10ML VIAL) ONE ×4 (06:33→08:47)
[2023-06-19] MEDS ORDERED: fentaNYL PF 100 MCG/2 ML SYRINGE ONE (06:33)
[2023-06-19] MEDS ORDERED: Dexamethasone 4 mg/ml Vial ONE ×2 (06:33→07:33)
[2023-06-19] MEDS ORDERED: PROPOFOL 20 ML ONE (06:33)
[2023-06-19] MEDS ORDERED: Ondansetron PF 4 MG/2 ML Vial ONE ×2 (06:33→07:03)
[2023-06-19] MEDS ORDERED: Sodium Chloride 0.9% 100 ML ONE (06:48)
[2023-06-19] MEDS ORDERED: CEFAZOLIN 2 GM VIAL ONE (06:48)
[2023-06-19] MEDS ORDERED: PROPOFOL 200 MG/20 ML VIAL ONE (07:03)
[2023-06-19] MEDS ORDERED: Dexamethasone 20 MG/5 ML VIAL ONE (07:03)
[2023-06-19] MEDS ORDERED: ePHEDrine Sulfate 50 MG/10 ML VIAL ONE ×2 (07:03→08:00)
[2023-06-19] MEDS ORDERED: Calcium Chloride 1 GM/10 ML Abboject SYRINGE ONE ×2 (07:03→09:51)
[2023-06-19] MEDS ORDERED: Vecuronium 10 MG VIAL ONE ×2 (07:03→10:41)
[2023-06-19] MEDS ORDERED: PHENYLEPHRINE-NS 100 MCG/ML 10 ML SYRINGE ONE (07:03)
[2023-06-19] MEDS ORDERED: Phenylephrine 40 MG/NS 250 ML 250 ML ONE (08:54)
[2023-06-19] MEDS ORDERED: CEFAZOLIN 1 GM VIAL ONE (11:44)
[2023-06-19] MEDS ORDERED: SUGAMMADEX SODIUM 200 MG/2 ML VIAL ONE (11:44)
[2023-06-19] MEDS ORDERED: Midazolam HCl 2 mg/2 ml Vial ONE (11:47)
[2023-06-19] MEDS ORDERED: Ondansetron PF 4 MG/2 ML Vial IVP PRN (12:03)
[2023-06-19] MEDS ORDERED: Prochlorperazine 10 MG/2 ML VIAL IM PRN (12:03)
[2023-06-19] MEDS ORDERED: diphenhydrAMINE 50 MG/ML VIAL IVP PRN (12:03)
[2023-06-19] MEDS ORDERED: HYDROcodone/Acetaminophen 7.5/325 mg Tablet PO PRN (12:03)
[2023-06-19] MEDS ORDERED: Milk Of Magnesia 30 ML UDCUP PO PRN (12:03)
[2023-06-19] MEDS ORDERED: Acetaminophen/Codeine 30-300mg Tablet PO PRN (12:03)
[2023-06-19] MEDS ORDERED: Bisacodyl 10 MG SUPP PR PRN (12:03)
[2023-06-19] MEDS ORDERED: tiZANidine HCl 4 MG TAB PO PRN (12:05)
[2023-06-19] MEDS ORDERED: Lorazepam 1 MG TAB PO PRN (12:05)
[2023-06-19] MEDS ORDERED: Lorazepam 2 MG/ML VIAL IM PRN (12:05)
[2023-06-19] MEDS ORDERED: Electrolyte Replacement Protocol 1 EACH FS SCH (12:15)
[2023-06-19] MEDS ORDERED: Promethazine HCl 25 MG/ML VIAL IM PRN (12:20)
[2023-06-19] MEDS ORDERED: Ondansetron HCl/PF 4 MG/2 ML Vial IVP PRN (12:20)
[2023-06-19] MEDS ORDERED: fentaNYL 50 mcg/mL 1 mL Vial ONE ×4 (12:38→14:56)
[2023-06-19 13:09] LABS: Bilirubin, Direct 0.1 mg/dL (0.1-0.3); Magnesium 1.8 mg/dL (1.6-2.6); Phosphorus 2.8 mg/dL (2.3-4.7)
[2023-06-19] MEDS ORDERED: Thiamine HCl 200 MG/2 ML VIAL SLOW IVP SCH (14:00)
[2023-06-19] MEDS ORDERED: CEFAZOLIN 2 GM in Sodium Chloride 0.9% 100 ML IVPB SCH (14:00)
[2023-06-19] MEDS: Lorazepam 1 MG TAB PO SCH ×2 (16:28→18:09)
[2023-06-19] MEDS ORDERED: Magnesium 2 GM/50 ML(in water) 2 GM in Premix 1 BAG IVPB SCH (16:30)
[2023-06-19 17:04] VITALS: BMI 32.3
[2023-06-19] MEDS ORDERED: hydrALAZINE 20 MG/ML VIAL SLOW IVP PRN ×2 (17:11→18:32)
[2023-06-19] MEDS ORDERED: Labetalol HCl 100 MG/20 ML VIAL SLOW IVP PRN (17:12)
[2023-06-19] MEDS: Gabapentin 300 MG CAP PO SCH ×2 (17:36→21:01)
[2023-06-19] MEDS: Sodium Chloride 0.9% 1,000 ML IV SCH (17:48)
[2023-06-19] MEDS: Morphine 2 MG/ML VIAL SLOW IVP PRN (18:19)
[2023-06-19 19:40] LABS: ALT (SGPT) 14 U/L (8-55); AST (SGOT) 17 U/L (5-34); Albumin 4.3 g/dL (3.4-4.8); Alkaline Phosphatase 89 U/L (40-110); Anion Gap 14 mmol/L (10-20); BUN (Urea Nitrogen) 23 mg/dL (8.4-25.7); Bilirubin, Total 0.3 mg/dL (0.2-1.2); Calc. Creatinine Clearance 105 mL/min (70-130); Calcium 9.3 mg/dL (7.8-10.44); Carbon Dioxide 25 mmol/L (23-31); Chloride 97 mmol/L (98-107); Estimated GFR 79; Globulin 2.5 g/dL (2.4-3.5); Glucose 145 mg/dL (80-115); Potassium 4.1 mmol/L (3.5-5.1); Protein, Total 6.8 g/dL (5.8-8.1); Sodium 132 mmol/L (136-145)
[2023-06-19] MEDS: CEFAZOLIN 2 GM in Sodium Chloride 0.9% 100 ML IVPB SCH (20:58)
[2023-06-20] MEDS: Morphine 2 MG/ML VIAL SLOW IVP PRN (00:18)
[2023-06-20] MEDS: Lorazepam 1 MG TAB PO SCH ×2 (00:19→06:43)
[2023-06-20] MEDS: Sodium Chloride 0.9% 1,000 ML IV SCH (01:22)
[2023-06-20] MEDS: hydrALAZINE 25 MG TAB PO SCH ×2 (01:26→08:12)
[2023-06-20] MEDS: CEFAZOLIN 2 GM in Sodium Chloride 0.9% 100 ML IVPB SCH (04:02)
[2023-06-20 06:06] LABS: #Monocytes 0.7 thou/uL (0.11-0.59); #Neutrophils 9.2 thou/uL (1.40-6.50); %Basophils 0.1 % (0.0-1.0); %Eosinophils 0.1 % (0.0-10.0); %Lymphocytes 41.5 % (21.0-51.0); %Monocytes 4.1 % (0.0-10.0); %Neutrophils 53.7 % (42.0-75.0); Hematocrit 35.1 % (42.0-52.0); Hemoglobin 11.8 g/dL (14.0-18.0); Mean Corpuscular HGB CONC 33.6 g/dL (32.0-36.0); Mean Corpuscular Volume 92.1 fl (78.0-98.0); Mean Platelet Volume 8.2 fL (7.4-10.4); Platelet Count 198 10x3/uL (130-400); Red Blood Cell (RBC) Count 3.81 mill/uL (4.70-6.10); White Blood Cell (WBC) Count 17.1 10x3/uL (4.8-10.8)
[2023-06-20 06:37] LABS: Anion Gap 14 mmol/L (10-20); BUN (Urea Nitrogen) 17 mg/dL (8.4-25.7); Calc. Creatinine Clearance 114 mL/min (70-130); Calcium 9.3 mg/dL (7.8-10.44); Carbon Dioxide 25 mmol/L (23-31); Chloride 100 mmol/L (98-107); Estimated GFR 88; Glucose 115 mg/dL (80-115); Magnesium 2.1 mg/dL (1.6-2.6); Sodium 135 mmol/L (136-145)
[2023-06-20] MEDS ORDERED: Ferrous Sulfate 325 MG TAB PO SCH (08:00)
[2023-06-20] MEDS: Gabapentin 300 MG CAP PO SCH (08:12)
[2023-06-20 08:14] VITALS: BP 173/81
[2023-06-20 08:34] VITALS: TEMP 97.6
[2023-06-20] MEDS ORDERED: Folic Acid 1 MG TAB PO SCH (09:00)
[2023-06-20] MEDS ORDERED: Multivit, Therapeutic 1 TAB PO SCH (09:00)
[2023-06-20] MEDS ORDERED: Furosemide 40 MG TAB PO SCH (09:00)
[2023-06-20] MEDS ORDERED: Hydrochlorothiazide 25 MG TAB PO SCH ×2 (09:00)
[2023-06-20] MEDS ORDERED: Non-Formulary Item 1 EACH (Iron [Iron] 18 MG Tablet) PO SCH (09:00)
[2023-06-20] MEDS ORDERED: Tamsulosin HCl 0.4 MG CAP PO SCH (09:00)
[2023-06-20] MEDS ORDERED: Lorazepam 1 MG TAB PO PRN (12:06)
[2023-06-21] MEDS ORDERED: Lorazepam 1 MG TAB PO PRN (12:06)
[2023-06-21] MEDS ORDERED: Lorazepam 0.5 MG TAB PO SCH (12:15)
[2023-06-22] MEDS ORDERED: Thiamine 100 MG TAB PO SCH (09:00)
[2023-06-22] MEDS ORDERED: Lorazepam 0.5 MG TAB PO PRN (12:06)
== END 2023-06-20 11:09 | disposition home or self-care (01) ==
LOC: SURG A 06-19 05:32 → INTOOBSV 06-19 05:32 → T4-A 06-19 15:52
PROVIDERS: ADMIT Neurological Surgery; ATTEND Internal Medicine
PROC: 0RG20A0 Fusion of 2 or more Cervical Vertebral Joints with Interbody Fusion Device, Anterior Approach, Anterior Column, Open Approach (ICD-10-PCS; principal; 2023-06-20)
PROC: 0RG2070 Fusion of 2 or more Cervical Vertebral Joints with Autologous Tissue Substitute, Anterior Approach, Anterior Column, Open Approach (ICD-10-PCS; 2023-06-20)
DX: M50.121 Cervical disc disorder at C4-C5 level with radiculopathy (principal); M50.122 Cervical disc disorder at C5-C6 level with radiculopathy; M50.123 Cervical disc disorder at C6-C7 level with radiculopathy; M50.021 Cervical disc disorder at C4-C5 level with myelopathy; M50.022 Cervical disc disorder at C5-C6 level with myelopathy; M50.023 Cervical disc disorder at C6-C7 level with myelopathy; M48.02 Spinal stenosis, cervical region; I10 Essential (primary) hypertension; E87.1 Hypo-osmolality and hyponatremia; R79.89 Other specified abnormal findings of blood chemistry; Z79.899 Other long term (current) drug therapy
CPT/HCPCS: 36415; 80048; 80053; 82248; 83735; 84100; 85025; A4314; C1713; J0360; J0690; J1100; J2250; J2272; J2405; J2704; J3010; J3370; J3411; J3475; J3490

== ENCOUNTER 2023-08-15 10:04 | Outpatient (CLI) | payer OTHER | END 2023-08-15 10:05 | disposition home or self-care (01) | LOC: BICRAD 10:04 | PROVIDERS: ATTEND Neurological Surgery | DX: M47.12 Other spondylosis with myelopathy, cervical region (principal); Z98.890 Other specified postprocedural states | CPT/HCPCS: 72040 ==